=== PATIENT | male | born 1940 | race Hispanic/Latino ===

== ENCOUNTER 2024-12-26 18:23 | Inpatient (IN) | payer OTHER, MEDICARE ==
[~2024-12-26] VITALS: Ht 167.6 cm; Wt 59.9 kg
[2024-12-26 20:26] LABS: IMMATURE GRANULOCYTE ABSOLUTE 0.06 K/uL (0-1); NUCLEATED RED BLOOD CELLS 0.0 % (0.0-0.19); PLATELET COUNT (AUTO) 207 K/uL (130-400); RED BLOOD CELL COUNT(AUTO) 3.99 MIL/uL (4.50-6.20); RED CELL DISTRIBUTION WIDTH 12.6 % (11.0-15.5); WHITE BLOOD COUNT (AUTO) 13.2 K/uL (4.8-10.8)
[2024-12-26] MEDS: 0.9% NACL 500ML IV.SOLN 500 ML IV ONE ×2 (20:27→23:02)
[2024-12-26 20:43] LABS: CREATININE 1.0 mg/dL (0.5-1.3); GLOMERULAR FILTR. RATE CALC 73.0 mL/min (>90); GLUCOSE,RANDOM 220.0 mg/dL (70-105); SODIUM SERUM 138.0 mmol/L (136-145); UREA NITROGEN, BLOOD 16.0 mg/dL (7-18)
[2024-12-26 20:52] LABS: ASPARTATE AMINOTRANSFERASE 22.0 U/L (10-37); TOTAL PROTEIN, SERUM 6.6 g/dL (6.0-8.3)
--- NOTE | 2024-12-26 21:42 | HMCIMG ---
EXAM: CT Head Without IV contrast. CLINICAL HISTORY: Patient presents with pain. TECHNIQUE: Axial computed tomography images of the head/brain without intravenous contrast. COMPARISON: None provided. FINDINGS: BRAIN: Extensive gliosis with encephalomalacia in the bilateral frontal lobes and right cerebellar hemisphere. Diffuse cerebral atrophy in the form of prominent cortical sulci, basal cisterns, and bilateral sylvian fissures. Periventricular hypodensities are concerning for chronic microangiopathic ischemic changes. 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 The lesion is suboptimally evaluated due to the non-contrast nature of the study. MRI brain with contrast is recommended for further evaluation. The right cerebellopontine angle cistern appears prominent. No evidence of acute hemorrhage or acute territorial infarct. No midline shift or extra-axial collections. VENTRICLES: Mild prominence of the ventricular system without hydrocephalus. ORBITS: The orbits are unremarkable. SINUSES AND MASTOIDS: The paranasal sinuses and mastoid air cells are clear. BONES: Diffuse thinning of the calvarium in the frontal region with a focal bony defect along the inner table of the frontal bone and a bone flap in place. No acute fracture. SOFT TISSUES: Unremarkable. 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 Recommend MRI brain and IAC with contrast for further evaluation. Extensive gliosis with encephalomalacia in the bilateral frontal lobes and right cerebellar hemisphere. Diffuse cerebral atrophy with chronic microangiopathic ischemic changes. Postsurgical changes in the frontal calvarium with a bony defect and a bone flap in place. No acute intracranial hemorrhage. /[place]
[2024-12-26 21:53] LABS: SARS-CoV-2, RNA, NAAT NEGATIVE SARS CoV-2 (NEGATIVE)
[2024-12-26 21:57] LABS: INFLUENZA TYPE A Negative For Type A (NEGATIVE); INFLUENZA TYPE B Negative For Type B (NEGATIVE)
[2024-12-26] MEDS: 0.9% NACL 500ML IV.SOLN 500 ML IV SCH (22:12)
[2024-12-26 22:50] LABS: INR 1.12 (0.85-1.15)
[2024-12-26] MEDS ORDERED: IOHEXOL 350 MG/ML 100ML INFUS..BTL IV ONE (22:58)
[2024-12-26] MEDS: LACTATED RINGERS 1000ML 1,000 ML IV SCH (23:29)
[2024-12-26] MEDS ORDERED: HYDROcodone/APAP 5/325 1 TAB TABLET PO PRN ×2 (23:30)
[2024-12-26] MEDS ORDERED: PROMETHAZINE HCL 25 MG/ML 1ML AMPULE IM PRN (23:30)
[2024-12-26] MEDS ORDERED: LACTULOSE 20 GM/30 ML UDCUP PO PRN (23:30)
--- NOTE | 2024-12-26 23:49 | HMCIMG ---
EXAM: CR Chest, 1 view CLINICAL HISTORY: Elevated heart rate. COMPARISON: None provided. FINDINGS: Left lower zone airspace disease. The remaining lung leahy are clear. No pleural effusion or pneumothorax. The cardiomediastinal silhouette is within normal limits. Mild atherosclerotic aorta. No acute osseous abnormality. IMPRESSION: Left lower zone airspace disease could be pneumonia. The remaining lung leahy are clear. /[place]
--- NOTE | 2024-12-26 23:54 | ERN ---
ED Note History of Present Illness Stated Complaint: NAUSEA, VOMITING Chief Complaint: Nausea,Vomiting,Diarrhea Time Seen by MD: 18:27 Time Seen by Midlevel: 18:28 Dictation: 84-year-old male who presents to the emergency department due to reported having some nausea and vomiting that began 2 days ago. Currently, he denies having any headache, fever, chills, runny nose or sore throat associated with this. Patient states that he does have a history of a brain tumor and does not know whether or not this might be related with this. 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 There is no report of any chest pain, chest pressure or shortness of breath associated with this. However, he states that he is unsure whether or not this might be related to that. Upon initial evaluation, the patient presents with a normal neurological examination. Allergies: Coded Allergies: No Known Drug Intolerances (Unverified Allergy, Unknown, 12/26/24) Emergency Care OPTICAL ASSISTANT: None Past Medical History Past Medical History: Diabetes-Type II, Hypertension, Hypothyroid Surgical History: None PSYCH History: no pertinent psych hx RN Note Reviewed/Agreed w/PFSH: Yes Review of System Dictation Abdomen/GI: Nausea vomiting Initial Vital Sign VS Vital Signs Date Time Temp Pulse Resp B/P (MAP) Pulse Ox O2 Delivery O2 Flow Rate FiO2 12/26/24 18:24 98.1 104 18 110/46 97 Room Air 0 12/26/24 18:50 21 Physical Exam Dictation General: awake, alert, NAD Head/Face: Normocephalic, atraumatic Eyes: PERRL, EOMI ENT: Oral mucosa moist Neck: Trachea midline, supple Cardiovascular: RRR, no edema Respiratory: Symmetrical, non-labored Abdomen: Soft, non-tender, non-distended, no guarding. Skin: Warm, dry, good turgor, no rash MS/Extremity: Pulses equal, no cyanosis, neurovascular intact, FROM Neuro: COAx4, GCS 15, steady gait, Psych: Normal behavior, mood, and affect normal Results (Laboratory/Radiology) Laboratory/Radiology Laboratory Tests Test 12/26/24 18:43 12/26/24 18:47 12/26/24 21:33 12/26/24 22:28 Whole Blood Glucose 233 MG/DL (70-110) H White Blood Count 13.2 K/uL (4.8-10.8) H Red Blood Count 3.99 MIL/uL (4.50-6.20) L Hemoglobin 11.8 g/dL (14.0-18.0) L Hematocrit 33.6 % (42-54) L Mean Corpuscular Volume 84.2 fL (79-99) Mean Corpuscular Hemoglobin 29.6 pg (27.0-33.0) Mean Corpuscular Hemoglobin Concent 35.1 g/dL (32.0-36.0) Red Cell Distribution Width 12.6 % (11.0-15.5) Platelet Count 207 K/uL (130-400) Mean Platelet Volume 9.7 fL (7.5-10.5) Immature Granulocyte % (Auto) 0.5 % (0-1) Neutrophils (%) (Auto) 90.3 % (40.0-77.0) H Lymphocytes (%) (Auto) 4.3 % (21.0-51.0) L Monocytes (%) (Auto) 4.6 % (3.0-13.0) Eosinophils (%) (Auto) 0.0 % (0.0-8.0) Basophils (%) (Auto) 0.3 % (0.0-5.0) Neutrophils # (Auto) 11.9 K/uL (1.8-7.7) H Lymphocytes # (Auto) 0.6 K/uL (1.0-4.8) L Monocytes # (Auto) 0.6 K/uL (0.1-1.0) Eosinophils # (Auto) 0.00 K/uL (0.00-0.70) Basophils # (Auto) 0.04 K/uL (0.00-0.20) Absolute Immature Granulocyte (auto 0.06 K/uL (0-1) Nucleated Red Blood Cells 0.0 % (0.0-0.19) White Cell Morphology Comment See comments Sodium Level 138 mmol/L (136-145) Potassium Level 3.3 mmol/L (3.5-5.1) L Chloride Level 100 mmol/L (101-111) L Carbon Dioxide Level 28 mmol/L (21-32) Blood Urea Nitrogen 16 mg/dL (7-18) Creatinine 1.0 mg/dL (0.5-1.3) Glomerular Filtration Rate Calc 73 mL/min (>90) Random Glucose 220 mg/dL (70-105) H Total Calcium 8.8 mg/dL (8.5-10.1) Total Bilirubin 1.0 mg/dL (0.2-1.0) Aspartate Amino Transf (AST/SGOT) 22 U/L (10-37) Alanine Aminotransferase (ALT/SGPT) 19 U/L (12-78) Alkaline Phosphatase 117 U/L (50-136) Total Protein 6.6 g/dL (6.0-8.3) Albumin 3.2 g/dL (3.5-5.0) L Influenza Type A Antigen Negative For Type A Influenza Type B Antigen Negative For Type B SARS-CoV-2, RNA, NAAT NEGATIVE SARS CoV-2 Prothrombin Time 11.7 SEC (9.6-11.6) H Prothromb Time International Ratio 1.12 (0.85-1.15) Activated Partial Thromboplast Time 26.8 SEC (26.3-35.5) D-Dimer Quantitative (PE/DVT) 1595 ng/mL (0-500) *H Troponin I High Sensitivity 120 ng/L (4-75) *H Labs Reviewed?: Yes EKG Comment: EKG done 12/26/2025 at 10:51 p.m.. Ventricular rate 105 beats per minute KS 189 MS QRS 97 MS QT to 335 MS [address] Scan Comment: CT of the head without contrast concerning for a brain tumor with mass effect as per radiologist interpretation. ED Course ED Course Orders Procedure Category Date Status Time Cbc With Differential LAB 12/26/24 Complete 18:56 Comprehensive LAB 12/26/24 Complete Metabolic Panel 18:56 Ct Head/Brain W/O CT 12/26/24 Resulted Contrast 20:24 0.9% Nacl 500ml PHA 12/26/24 Complete Iv.Soln (Ns 500ml 20:30 12 Lead Ekg Tracing- EKG 12/26/24 Logged Technical 21:28 Covid Rna Naat LAB 12/26/24 Complete 21:31 Influenza Type A & B, LAB 12/26/24 Complete Rapid 21:31 0.9% Nacl 500ml PHA 12/26/24 In Process Iv.Soln (Ns 500ml 22:00 Chest 1vw RAD 12/26/24 Taken 22:16 Troponin I High LAB 12/26/24 Complete Sensitivity 22:16 Pt And Ptt LAB 12/26/24 Complete 22:16 Prothrombin Time With LAB 12/26/24 Complete INR 22:16 D-Dimer LAB 12/26/24 Complete 22:16 Urinalysis Profile LAB 12/26/24 Logged 22:16 Ct Chest Pe Protocol CT 12/26/24 Taken Wwo Cont 22:36 0.9% Nacl 500ml PHA 12/26/24 Complete Iv.Soln (Ns 500ml 23:00 12 Lead Ekg Tracing- EKG 12/26/24 Logged Technical 22:51 Iohexol (Omnipaque) PHA 12/26/24 Complete 22:58 Dexamethasone 4mg/Ml PHA 12/26/24 Complete 1ml Vial (Dexametha 23:30 Neurosurgery Consult CONPHYSVC 12/27/24 Transmitted 08:00 Dexamethasone 4mg/Ml PHA 12/27/24 In Process 1ml Vial (Dexametha 11:30 Vital Signs Every 4 CPOE 12/26/24 Transmitted Hours 23:16 I&O Q Shift CPOE 12/26/24 Transmitted 23:16 Activity: Bed Rest CPOE 12/26/24 Transmitted 23:16 Npo Except For Meds CPOE 12/26/24 Transmitted 23:16 O2 Order RT 12/26/24 Transmitted 23:16 Cbc Without LAB 12/27/24 Verified Differential 04:00 Basic Metabolic Panel LAB 12/27/24 Verified 04:00 Magnesium LAB 12/27/24 Verified 04:00 Phosphorus LAB 12/27/24 Verified 04:00 Thyroid Stimulating LAB 12/27/24 Verified Hormone 04:00 Echo 2-D Complete ECHO 12/26/24 Logged 23:16 Lactated Ringers PHA 12/26/24 In Process 1000ml (Lactated 23:30 Acetaminophen 325 Tab PHA 12/26/24 In Process (Tylenol 325mg Tab 23:30 Acetaminophen 650mg PHA 12/26/24 In Process Supp (Tylenol 650mg 23:30 Hydrocodone/Apap PHA 12/26/24 In Process 5/325 ([place] 5/325mg) 23:30 Lactulose 20 Gm/30 Ml PHA 12/26/24 In Process Udcup (Constulose 23:30 Docusate Sodium 100 PHA 12/26/24 In Process Mg Cap (Colace 100mg 23:30 Temazepam 15 Mg Cap PHA 12/26/24 In Process (Restoril 15 Mg Cap) 23:30 Ondansetron 4mg Inj PHA 12/26/24 In Process (Zofran 4mg Inj) 23:30 Labetalol 20mg Syg PHA 12/26/24 In Process (Trandate 20mg Syg) 23:30 Apply Scds CPOE 12/26/24 Transmitted 23:16 Elevate Hob At 30 CPOE 12/26/24 Transmitted Degrees 23:16 Telemetry Monitoring CPOE 12/26/24 Transmitted 23:16 Initiate PHILLIP 12/26/24 In Process Hyperglycemia Protoco 23:16 Insulin Regular, PHA 12/27/24 In Process Human 3ml (Humulin R 07:30 Promethazine Hcl PHA 12/26/24 In Process (Phenergan) 23:30 Hydrocodone/Apap PHA 12/26/24 In Process 5/325 ([place] 5/325mg) 23:30 *Nursing CPOE 12/26/24 Transmitted Communication: 23:24 *Nursing CPOE 12/26/24 Transmitted Communication: 23:24 Hemoglobin A1c LAB 12/27/24 Verified 04:00 Troponin I High LAB 12/27/24 Verified Sensitivity 04:00 Rapid (Group A Strep) LAB 12/26/24 Logged 23:24 Aspirin 81mg Chew Tab PHA 12/26/24 Complete (Aspirin 81mg Chew 23:30 Atorvastatin 40mg PHA 12/27/24 In Process (Lipitor 40mg) 21:00 12 Lead Ekg Tracing- EKG 12/27/24 Logged Technical 04:00 Heparin 5,000 Unit PHA 12/26/24 In Process Vial (Heparin 5,000 U 23:30 Admit Orders ADM 12/26/24 Transmitted 23:34 Current Medications Medications (Trade) Dose Ordered Sig/Joao Route PRN Reason Start Time Stop Time Status Last Admin Dose Admin Acetaminophen (TYLenol 325MG TAB) 650 mg Q6H PRN PO FEVER/MILD PAIN LEVEL 1-3 12/26/24 23:30 01/25/25 23:29 Acetaminophen (TYLenol 650MG SUPPOSITORY) 650 mg Q6H PRN RC FEVER / MILD PAIN 1-3 IF NPO 12/26/24 23:30 01/25/25 23:29 Acetaminophen/ Hydrocodone Bitart (NORco 5/325MG) 1 tab Q6H PRN PO MODERATE PAIN (4-6) 12/26/24 23:30 12/31/24 23:29 Acetaminophen/ Hydrocodone Bitart (NORco 5/325MG) 2 tab Q6H PRN PO SEVERE PAIN (7-10) 12/26/24 23:30 12/31/24 23:29 Aspirin (Aspirin 81mg Chew Tab) 81 mg ONCE ONCE PO 12/26/24 23:30 12/26/24 23:37 DC Atorvastatin Calcium (LIPItor 40MG) 40 mg HS PO 12/27/24 21:00 01/26/25 20:59 Dexamethasone Sodium Phosphate (dexaMETHasone 4MG/ML 1ML VIAL) 4 mg Q12H IVP 12/27/24 11:30 01/26/25 11:29 Dexamethasone Sodium Phosphate (dexaMETHasone 4MG/ML 1ML VIAL) 6 mg ONCE ONCE IVP 12/26/24 23:30 12/26/24 23:31 DC 12/26/24 23:24 Docusate Sodium (COLace 100MG CAP) 100 mg BID PRN PO c 12/26/24 23:30 01/25/25 23:29 Heparin Sodium (Porcine) (HEParin 5,000 UNIT VIAL) 5,000 unit Q12H SQ 12/26/24 23:30 01/25/25 23:29 Insulin Human Regular (humuLIN R 100 UNIT/ML 3ML) INSULIN SLIDING SCAL... ACHS SQ 12/27/24 07:30 01/26/25 07:29 Iohexol (Omnipaque) 35,000 mg STK-MED ONCE IV 12/26/24 22:58 12/26/24 22:59 DC Labetalol HCl (TRANdate 20MG SYG) 10 mg Q2H PRN IV SBP GREATER THAN 160 12/26/24 23:30 01/25/25 23:29 Lactated Ringer's 1,000 ml @ 75 mls/hr [id number] IV 12/26/24 23:30 01/25/25 23:29 12/26/24 23:29 Lactulose (Constulose 20gm/ 30ml Udcup) 20 gm Q6H PRN PO CONSTIPATION 12/26/24 23:30 01/25/25 23:29 Ondansetron HCl (zoFRAN 4MG INJ) 4 mg Q6H PRN IVP NAUSEA/VOMITING 12/26/24 23:30 01/25/25 23:29 Promethazine HCl (Phenergan) 12.5 mg Q6H6 PRN IM NAUSEA 12/26/24 23:30 01/25/25 23:29 Sodium Chloride 500 ml @ 0 mls/hr ONCE ONCE IV 12/26/24 20:30 12/26/24 20:31 DC 12/26/24 20:27 Sodium Chloride 500 ml @ 0 mls/hr Q0M IV 12/26/24 22:00 01/25/25 21:59 12/26/24 22:12 Sodium Chloride 500 ml @ 0 mls/hr Q0M ONCE IV 12/26/24 23:00 12/26/24 23:01 DC 12/26/24 23:02 Temazepam (restORIL 15 MG CAP) 15 mg HS PRN PO INSOMNIA/SLEEP 12/26/24 23:30 01/25/25 23:29 Vital Signs Date Time Temp Pulse Resp B/P (MAP) Pulse Ox O2 Delivery O2 Flow Rate FiO2 12/26/24 22:49 107 20 144/69 97 Room Air* 0 12/26/24 20:40 99.7 141 20 110/64 97 Room Air* 0 12/26/24 19:22 93 20 130/55 96 Room Air* 0 12/26/24 18:50 98.6 93 20 122/51 95 Room Air* 0 12/26/24 18:24 98.1 104 18 110/46 97 Room Air 0 Medical Decision Making MDM MDM: Differential diagnosis: STEMI, non STEMI, electrolyte imbalance. Rationale: Tests considered and ordered secondary to shared decision making include: Previous outside records reviewed: Old ER visits. Risk of complication and/or morbidity or mortality of patient management: None Medications-Per medication reconciliation Need for hospitalization: Patient does not meet criteria for hospitalization. Need for emergency major/minor surgery: No There are no social concerns with this patient. Prescription drug management Prescriptions will include symptomatic care Patient's prior external medical records from other ER visits were reviewed by me as indicated. Prior testing and results from previous visits were reviewed. Prior tests were taken into account with medical decision making and resource utilization, independent historian/historians were used to obtain complete medical history. I independently interpreted the test that were performed, results were reviewed by me and considered findings on radiology if ordered. Medical management and examination interpretation discussions were had by me with other qualified healthcare professionals as indicated for the patient's care. 12/26/2024 [place] [id number]. Discussed and reviewed the diagnostic findings with Dr. Alvarez who states that he has the patient aware in the past that this is mother like an operable tumor due to the fact that there is a good chance of not being able to survive the surgery for which it has been confirmed with the patient and states that he is pending to talk to the family and his primary care doctor about this. DX & DISP Disposition: Inpatient Decision to Admit Date: Dec 26, 2024 Decision to Admit Time: 23:53 Departure Impression: Primary Impression: Non-STEMI (non-ST elevated myocardial infarction) Additional Impression: History of brain tumor Condition: Stable Referrals: WARREN ISIDRO MD (PCP) Time of Disposition: 23:53 GURPREET LOWRY Dec 26, 2024 23:54
[2024-12-27] VITALS (9 sets, daily range): BP systolic 135–158; BP diastolic 68–70; PULSE 61–89; RESP 18; TEMP 97.6–98.9; O2SAT 96–97
--- NOTE | 2024-12-27 | HP ---
[facility] HISTORY & PHYSICAL Date Patient Seen: Dec 27, 2024 Time of Visit: 00:00 Supervising Physician: Dr. Keith Barker Primary Care Physician: Dr. Penelope De Los Santos Outpatient Specialists: Patient saw Unknown neurosurgeon two years ago Inpatient Consults: Dr. 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 Extensive gliosis with encephalomalacia in the bilateral frontal lobes and right cerebellar hemisphere, per CT on 12/26/2024. Diffuse cerebral atrophy with chronic microangiopathic ischemic changes, per CT on 12/26/2024 Postsurgical changes in the frontal calvarium with a bony defect and a bone flap in place, per CT on 12/26/2024 Sepsis with pneumonia and UTI as a sources Left lower lobe pneumonia, POA Acute complicated cystitis, POA Elevated troponin Dehydration 2/2 acute nausea and vomiting Elevated D-dimer, POA, PE was ruled out Pulmonary nodules,POA Hepatic cyst Cholelithiasis 0.8 cm fat density lesion in the left renal upper pole cortex, likely an angiomyolipoma Acute kidney injury, GFR 73 (no other GFR to compare) Leukocytosis Anemia chronic disease Electrolyte derangement (Hypokalemia, hypochloremia) Diabetes mellitus with hyperglycemia Hypoalbuminemia Chronic problem list: DM type 2, HTN, hypothyroidism HPI: Mr. Hollins is a 84-year-old male with a history of brain tumor who presented to [facility] for evaluation of nausea and vomiting that began 2 days ago. The son at bedside stated that they were told by unknown neurosurgeon two years ago that he does have a brain tumor that is almost completely inoperable. The patient deniedhe patient denied a headache, fever, chills, runny nose, sore throat, chest pain, chest pressure, or shortness of breath, any other problem or concern . The son at bedside reported that the patient will be fine and all of a sudden develops intermittent nausea. He reported that the neurosurgeon explained symptoms that might be experienced with the his tumor and the the patient is experiencing. However, he states that he is unsure whether or not this might be related to that. ED provider reports that upon initial evaluation, the patient presents with a normal neurological examination. The patient arrived to the ED with a blood pressure 110/46 heart rate 104-141 bpm, T-max 99.7, RR 18-[address] head without contrast: Isodense lesion in the right cerebellopontine angle cistern causing mass effect on the thong and right cerebellar hemisphere with effacement of the fourth ventricle. Recommend MRI brain and IAC with contrast for further evaluation. Extensive gliosis with encephalomalacia in the bilateral frontal lobes and right cerebellar hemisphere. Diffuse cerebral atrophy with chronic microangiopathic ischemic changes. Postsurgical changes in the frontal calvarium with a bony defect and a bone flap in place. No acute intracranial hemorrhage. CT chest PE protocol with and without contrast: Left lower lobe pneumonia. Pulmonary nodules. Follow-up posttreatment is recommended. Hepatic cyst. Cholelithiasis. 0.8 cm fat density lesion in the left renal upper pole cortex, likely an angiomyolipoma. Chest x-ray: Left lower zone airspace disease could be pneumonia. The remaining lung leahy are clear. ED provider reports that he spoke to neurosurgeon Dr. Alvarez who recommended to administer steroids, we will see patient tomorrow, and reported the complexity of a surgery with a poor outcome during surgery. ED administered NS a 1500 mL and Decadron 6 mg IV. I assessed the patient at bedside in ED 11. The patient was sleeping, breathing was even, unlabored, in no distress. Patient was slow to understand, follows commands, is oriented to person, place (not oriented to time and not really oriented to situation). I informed the son of labs, diagnostics, and plan of care. I answered the sons multiple questions. He verbalized understanding and is in agreement with the plan. Plan and assessment are listed below. PAST MEDICAL HX: see above PAST SURGICAL HX: noncontributory SOCIAL HISTORY: No tobacco, ETOH, or illicit drug use Coded Allergies: No Known Drug Intolerances (Unverified Allergy, Unknown, 12/26/24) REVIEW OF SYSTEMS: 12-ROS reviewed with the patient. All pertinent positives mentioned above. Otherwise negative, noncontributory, nonpertinent. PHYSICAL EXAM: GENERAL: Alert, weak, awake oriented x 2-3 HEENT: EOMI, Sclera non icteric, moist mucosa NECK: Supple, no JVD, trachea midline LUNGS: Clear breath sounds bilaterally. No wheezes HEART: Regular rate and rhythm. Normal S1 and S2, without murmurs ABD: Abdomen soft, nontender. Bowel sounds present EXT: No clubbing cyanosis or edema NEURO: Alert and oriented to person, place, and some situation, follows commands Vital Signs (last 8hr) Date Time Temp Pulse Resp B/P (MAP) Pulse Ox O2 Delivery O2 Flow Rate FiO2 12/26/24 23:47 113 20 154/81 97 Room Air* 0 21 12/26/24 22:49 107 20 144/69 97 Room Air* 0 21 12/26/24 20:40 99.7 141 20 110/64 97 Room Air* 0 21 12/26/24 19:22 93 20 130/55 96 Room Air* 0 21 12/26/24 18:50 98.6 93 20 122/51 95 Room Air* 0 21 12/26/24 18:24 98.1 104 18 110/46 97 Room Air 0 LABS: Hematology Labs: Test 12/26/24 18:47 Range/Units White Blood Count 13.2 H 4.8-10.8 K/uL Red Blood Count 3.99 L 4.50-6.20 MIL/uL Hemoglobin 11.8 L 14.0-18.0 g/dL Hematocrit 33.6 L 42-54 % Mean Corpuscular Volume 84.2 79-99 fL Mean Corpuscular Hemoglobin 29.6 27.0-33.0 pg Mean Corpuscular Hemoglobin Concent 35.1 32.0-36.0 g/dL Red Cell Distribution Width 12.6 11.0-15.5 % Platelet Count 207 130-400 K/uL Mean Platelet Volume 9.7 7.5-10.5 fL Immature Granulocyte % (Auto) 0.5 0-1 % Neutrophils (%) (Auto) 90.3 H 40.0-77.0 % Lymphocytes (%) (Auto) 4.3 L 21.0-51.0 % Monocytes (%) (Auto) 4.6 3.0-13.0 % Eosinophils (%) (Auto) 0.0 0.0-8.0 % Basophils (%) (Auto) 0.3 0.0-5.0 % Neutrophils # (Auto) 11.9 H 1.8-7.7 K/uL Lymphocytes # (Auto) 0.6 L 1.0-4.8 K/uL Monocytes # (Auto) 0.6 0.1-1.0 K/uL Eosinophils # (Auto) 0.00 0.00-0.70 K/uL Basophils # (Auto) 0.04 0.00-0.20 K/uL Absolute Immature Granulocyte (auto 0.06 0-1 K/uL Nucleated Red Blood Cells 0.0 0.0-0.19 % White Cell Morphology Comment See comments Chemistry Labs: Test 12/26/24 22:28 12/26/24 18:47 12/26/24 18:43 Range/Units Troponin I High Sensitivity 120 *H 4-75 ng/L Sodium Level 138 136-145 mmol/L Potassium Level 3.3 L 3.5-5.1 mmol/L Chloride Level 100 L 101-111 mmol/L Carbon Dioxide Level 28 21-32 mmol/L Blood Urea Nitrogen 16 7-18 mg/dL Creatinine 1.0 0.5-1.3 mg/dL Glomerular Filtration Rate Calc 73 >90 mL/min Random Glucose 220 H 70-105 mg/dL Total Calcium 8.8 8.5-10.1 mg/dL Total Bilirubin 1.0 0.2-1.0 mg/dL Aspartate Amino Transf (AST/SGOT) 22 10-37 U/L Alanine Aminotransferase (ALT/SGPT) 19 12-78 U/L Alkaline Phosphatase 117 50-136 U/L Total Protein 6.6 6.0-8.3 g/dL Albumin 3.2 L 3.5-5.0 g/dL Whole Blood Glucose 233 H 70-110 MG/DL Coagulation Labs: Test 12/26/24 22:28 Range/Units Prothrombin Time 11.7 H 9.6-11.6 SEC Prothromb Time International Ratio 1.12 0.85-1.15 Activated Partial Thromboplast Time 26.8 26.3-35.5 SEC D-Dimer Quantitative (PE/DVT) 1595 *H 0-500 ng/mL DIAGNOSTICS / RADIOLOGY RESULTS: [ ] PLAN -Admit to medical floor with continuous telemetry monitoring. -Neurosurgery was consulted by ED who will see patient as consult. -Neurological checks every 4 hours and as needed. -Dexamethasone as recommended by neurosurgeon. -Aspirin 81 mg x 1 dose administered. -Atorvastatin 40 mg p.o. daily. -Blood pressure checks every 4 hours and as needed. -Systolic blood pressure between 120 to 160 to maintain adequate brain perfusion. -MRI of brain and IAC with contrast as recommended by CT/ radiologist. -Echo complete. -Troponins and EKG series. -Antibiotic therapy: Rocephin and doxycycline. -LR at 75 mL an hour. (ED administered a NS 1500 mL.) -Reconcile home medications once available. -Glucometer checks before meals and at bedtime with regular insulin sliding scale as needed -PT/OT evaluation. -PRN medications for pain, N/V, constipation, fever, hypertension -AM labs: CBC, CMP, mag, phos, TSH, A1C, Vitamin B12, fibrinogen, folate level, lipid panel. -Monitor renal and liver function -Monitor electrolytes and treat accordingly PRN -GI and DVT prophylaxis. -Further plan/orders per hospitalization course. NEURO: Minimize central acting medications as possible. Maintain fall precautions, adequate lighting during the day PULMONARY: Supplemental 02 as needed. Maintain aspiration precautions at all times CARDIOVASCULAR: Follow hemodynamics. Vital signs per facility protocol GI & NUTRITION: Continue with nutritional support. Continue stool softeners and laxatives as needed. KIDNEYS & ELECTROLYTES: Strict monitoring of intake, output and overall fluid balance. Avoid nephrotoxic medications to the extent possible. Medications to be dosed according to renal function. Monitor electrolytes and replace as needed ENDOCRINE: Maintain blood glucose between 100-180 at all times. Hypoglycemia protocol in place INFECTIOUS DISEASE: Trend temperature, WBC and procalcitonin level Follow cultures, deescalate antibiotics as soon as possible. Panculture if new onset fever ONCOLOGY/HEMATOLOGY/COAGULATION: Monitor for s/s of bleeding Monitor hemoglobin, coagulation studies as needed SKIN: Pressure ulcer prevention per facility protocol Specialty mattress ORTHO/REHAB: Continue PT/OT Prophylaxis: Continue GI and DVT prophylaxis Code Status: Full Resuscitation Disposition: TBD ATTESTATION BY PHYSICIAN I reviewed the documentation, medical decision making, and treatment plan as noted by the CATIE above. I agree with the findings and plan of care. Keith Barker MD, [employer] Dec 27, 2024 00:00
[2024-12-27] MEDS: ASPIRIN 81MG CHEW TAB PO ONE (00:03)
--- NOTE | 2024-12-27 00:22 | HMCIMG ---
EXAM: CTA examination of the chest. CLINICAL HISTORY: History of cancer. TECHNIQUE: Thin collimated axial CTA images of the chest were obtained, and sagittal and coronal reformatted images were also submitted. A CT scan is done according to ALARA (As Low as Reasonably Achievable). CONTRAST: Omnipaque 350. COMPARISON: None provided. FINDINGS: There is a large consolidation in the left lower lobe, predominantly in the posterior segment. 0.5 cm right lower lobe pulmonary nodule (series 4, image 39). 0.4 cm left upper lobe pulmonary nodule (series 4, image 31). No pleural effusions. No pericardial effusion. The heart size is within normal limits. No thoracic aortic aneurysm or dissection. No filling defect or pulmonary thromboembolism. No axillary, supraclavicular, or mediastinal lymphadenopathy. Limited views of the upper abdomen demonstrate a 4.3 cm nonenhancing hypodense lesion in the right lobe of the liver, likely a cyst. Cholelithiasis. 0.8 cm fat density lesion in the left renal upper pole cortex, likely an angiomyolipoma. No acute or suspicious osseous abnormality. Thoracic spondylosis. Osteopenia. IMPRESSION: Left lower lobe pneumonia. Pulmonary nodules. Follow-up posttreatment is recommended. Hepatic cyst. Cholelithiasis. 0.8 cm fat density lesion in the left renal upper pole cortex, likely an angiomyolipoma. /[place]
[2024-12-27 01:05] LABS: APPEARANCE,URINE CLEAR (CLEAR); GLUCOSE, URINE (UA) TRACE mg/dL (NEGATIVE); LEUKOCYTE ESTERASE ,URINE 75 Leu/uL (NEGATIVE); NITRATE,URINE NEGATIVE (NEGATIVE); OCCULT BLOOD,URINE SMALL (NEGATIVE)
[2024-12-27 01:08] LABS: ADD UA MICROSCOPIC YES
--- NOTE | 2024-12-27 03:47 | EKG ---
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
[2024-12-27 04:05] LABS: NUCLEATED RED BLOOD CELLS 0.0 % (0.0-0.19); PLATELET COUNT (AUTO) 153.0 K/uL (130-400); RED BLOOD CELL COUNT(AUTO) 3.62 MIL/uL (4.50-6.20); RED CELL DISTRIBUTION WIDTH 12.7 % (11.0-15.5); WHITE BLOOD COUNT (AUTO) 14.2 K/uL (4.8-10.8)
[2024-12-27 04:37] LABS: CREATININE 0.9 mg/dL (0.5-1.3); GLOMERULAR FILTR. RATE CALC 83.0 mL/min (>90); GLUCOSE,RANDOM 220.0 mg/dL (70-105); PHOSPHORUS 2.6 mg/dL (2.5-4.9); SODIUM SERUM 142.0 mmol/L (136-145); UREA NITROGEN, BLOOD 13.0 mg/dL (7-18)
[2024-12-27] MEDS: MAGNESIUM 2GM PREMIX 50ML 50 ML IV PRN (06:17)
--- NOTE | 2024-12-27 06:46 | EKG ---
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
--- NOTE | 2024-12-27 06:47 | EKG ---
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
--- NOTE | 2024-12-27 07:02 | NUR ---
Family to bring home medications.
[2024-12-27] MEDS: DOXYCYCLINE 100MG+NS 250ML 250 ML IV SCH (10:31)
--- NOTE | 2024-12-27 11:25 | PN ---
[facility] PROGRESS NOTE Date Patient Seen: Dec 27, 2024 Time of Visit: 11:21 Supervising Physician: Dr Heller Primary Care Physician: Dr. Penelope De Los Santos Outpatient Specialists: Patient saw Unknown neurosurgeon two years ago Inpatient Consults: Dr. 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 Extensive gliosis with encephalomalacia in the bilateral frontal lobes and right cerebellar hemisphere, per CT on 12/26/2024. Diffuse cerebral atrophy with chronic microangiopathic ischemic changes, per CT on 12/26/2024 Postsurgical changes in the frontal calvarium with a bony defect and a bone flap in place, per CT on 12/26/2024 Sepsis with pneumonia and UTI as a sources Left lower lobe pneumonia, POA Acute complicated cystitis, POA Elevated troponin Dehydration 2/2 acute nausea and vomiting Elevated D-dimer, POA, PE was ruled out Pulmonary nodules,POA Hepatic cyst Cholelithiasis 0.8 cm fat density lesion in the left renal upper pole cortex, likely an angiomyolipoma Acute kidney injury, GFR 73 (no other GFR to compare) Leukocytosis Anemia chronic disease Electrolyte derangement (Hypokalemia, hypochloremia) Diabetes mellitus with hyperglycemia Hypoalbuminemia Chronic problem list: DM type 2, HTN, hypothyroidism INTERVAL HISTORY: Patient has been seen and examined, patient resting comfortably in bed, patient reporting improvement in his nausea. Denies any headache He is alert and oriented x4 No neurological deficits Tolerating breakfast, talking with his son at bedside. Patient's D-dimer is 1600, pending a CTA, patient is on steroids per Dr. Alvarez, dexamethasone 4 mg q.12 hours He is on antibiotics ceftriaxone and azithromycin for concern for possible pneumonia. Heparin subQ 12 hours Good O2 saturations Plan: Follow neurosurgical recs, steroids Neurovascular checks per protocol Antibiotics, follow cultures, RT, neb treatments Telemetry Follow CTA REVIEW OF SYSTEMS: 12-ROS reviewed with the patient. All pertinent positives mentioned above. Otherwise negative, noncontributory, nonpertinent. PHYSICAL EXAM: GENERAL: Alert, weak, awake oriented x 2-3 HEENT: EOMI, Sclera non icteric, moist mucosa NECK: Supple, no JVD, trachea midline LUNGS: Clear breath sounds bilaterally. No wheezes HEART: Regular rate and rhythm. Normal S1 and S2, without murmurs ABD: Abdomen soft, nontender. Bowel sounds present EXT: No clubbing cyanosis or edema NEURO: Alert and oriented to person, place, and some situation, follows commands Vital Signs (last 8hr) Date Time Temp Pulse Resp B/P (MAP) Pulse Ox O2 Delivery O2 Flow Rate FiO2 12/27/24 11:16 97.9 74 18 145/69 96 Room Air 12/27/24 08:05 99.0 77 18 141/68 97 Room Air 12/27/24 04:27 97 Room Air* 0 21 LABS: Hematology Labs: Test 12/27/24 03:57 12/26/24 18:47 Range/Units White Blood Count 14.2 H 4.8-10.8 K/uL Red Blood Count 3.62 L 4.50-6.20 MIL/uL Hemoglobin 10.6 L 14.0-18.0 g/dL Hematocrit 30.8 L 42-54 % Mean Corpuscular Volume 85.1 79-99 fL Mean Corpuscular Hemoglobin 29.3 27.0-33.0 pg Mean Corpuscular Hemoglobin Concent 34.4 32.0-36.0 g/dL Red Cell Distribution Width 12.7 11.0-15.5 % Platelet Count 153 # 130-400 K/uL Mean Platelet Volume 9.3 7.5-10.5 fL Nucleated Red Blood Cells 0.0 0.0-0.19 % Immature Granulocyte % (Auto) 0.5 0-1 % Neutrophils (%) (Auto) 90.3 H 40.0-77.0 % Lymphocytes (%) (Auto) 4.3 L 21.0-51.0 % Monocytes (%) (Auto) 4.6 3.0-13.0 % Eosinophils (%) (Auto) 0.0 0.0-8.0 % Basophils (%) (Auto) 0.3 0.0-5.0 % Neutrophils # (Auto) 11.9 H 1.8-7.7 K/uL Lymphocytes # (Auto) 0.6 L 1.0-4.8 K/uL Monocytes # (Auto) 0.6 0.1-1.0 K/uL Eosinophils # (Auto) 0.00 0.00-0.70 K/uL Basophils # (Auto) 0.04 0.00-0.20 K/uL Absolute Immature Granulocyte (auto 0.06 0-1 K/uL White Cell Morphology Comment See comments Chemistry Labs: Test 12/27/24 11:05 12/27/24 03:57 12/26/24 18:47 Range/Units Whole Blood Glucose 187 H 70-110 MG/DL Sodium Level 142 136-145 mmol/L Potassium Level 3.7 3.5-5.1 mmol/L Chloride Level 106 101-111 mmol/L Carbon Dioxide Level 29 21-32 mmol/L Blood Urea Nitrogen 13 7-18 mg/dL Creatinine 0.9 0.5-1.3 mg/dL Glomerular Filtration Rate Calc 83 >90 mL/min Random Glucose 220 H 70-105 mg/dL Total Calcium 9.1 8.5-10.1 mg/dL Phosphorus Level 2.6 2.5-4.9 mg/dL Magnesium Level 1.40 L 1.80-2.40 mg/dL Troponin I High Sensitivity 111 *H 4-75 ng/L Thyroid Stimulating Hormone (TSH) 0.59 0.36-3.74 uIU/mL Hemoglobin A1c 7.2 H 4.0-6.0 % Estimated Average Glucose (eAG) 160 H 70-126 mg/dL Total Bilirubin 1.0 0.2-1.0 mg/dL Aspartate Amino Transf (AST/SGOT) 22 10-37 U/L Alanine Aminotransferase (ALT/SGPT) 19 12-78 U/L Alkaline Phosphatase 117 50-136 U/L Total Protein 6.6 6.0-8.3 g/dL Albumin 3.2 L 3.5-5.0 g/dL Coagulation Labs: Test 12/26/24 22:28 Range/Units Prothrombin Time 11.7 H 9.6-11.6 SEC Prothromb Time International Ratio 1.12 0.85-1.15 Activated Partial Thromboplast Time 26.8 26.3-35.5 SEC D-Dimer Quantitative (PE/DVT) 1595 *H 0-500 ng/mL DIAGNOSTICS / RADIOLOGY RESULTS: [ ] PLAN NEURO: Minimize central acting medications as possible. Fall Precautions. Well lighted room through the day and minimize interruptions through the night to prevent acute delirium. PULMONARY: Supplemental 02 Titrate Fio2 to keep Spo2 > or = 90% DuoNebs and CPT as needed IS hourly while awake for pulmonary hygiene Out of bed to chair as tolerated VAP Bundle Vent/BIPAP Settings: [ ] Driving pressure: [ ] P Plat: [ ] Static C: [ ] Static R: [ ] P/F Ratio: [ ] CARDIOVASCULAR: Follow hemodynamics. Titrate vasopressor to keep MAP >65 or systolic blood pressure >95mmHg DIPS: [ ] LINES: [ ] GI & NUTRITION: Continue nutritional support Aspirations precautions Prokinetic agents and laxatives as needed KIDNEYS & ELECTROLYTES: Strict monitoring of intake and output Daily weights Avoid nephrotoxic agents Monitor electrolytes and replace as needed Goal urine output of 30mL/hr or 0.5mL/kg/hr Urine output: [ ] Fluid Balance: [ ] ENDOCRINE: Maintain blood glucose between 100-180 at all times. Insulin sliding scale for blood glucose management INFECTIOUS DISEASE: Trend temperature. Luong-culture if febrile. Micro: [ ] Antibiotics: [ ] HEMATOLOGY & COAGULATION: Monitor H&H. Keep Hgb > 7 Transfuse 1 unit of PRBC for Hgb < 7 Transfuse 1 pack of platelets of platelets < 20, 000 Watch for any signs and symptoms of bleeding SKIN: Pressure ulcer prevention per facility protocol Rehab: PT/OT Prophylaxis: GI: [ ] DVT: [ ] Code Status: Full Resuscitation Disposition: [ ] Other: Total patient critical care time 40 minutes excluding all procedures. Case was discussed and seen with my supervising physician. The above plan was formulated and agreed upon. CODEY RUIZ Dec 27, 2024 11:25
[2024-12-27] MEDS ORDERED: AZITHROMYCIN 500MG+NS 250ML 250 ML IVPB SCH (11:30)
--- NOTE | 2024-12-27 11:55 | NUR ---
DISCUSSED PATIENT BY PHONE WITH DR. BURR- HE STATES HE HAD ADVISED THE ER DOC HE WOULD BE IN TO SEE PATIENT TODAY. ROOM NUMBER RELAYED TO DR. BURR
--- NOTE | 2024-12-27 13:28 | NUR ---
DCP: HOME Sw met with pt and grandson(GDS) Filemon Hollins [phone]. GDS states pt stays 2 months at a time with each of his 3 children. Pt currently staying with Jackie Hollins [phone] at her home. Pt requires assistance with his ADLS ambulation transportation laundry and meal prep. Family assists as needed. Pt gets food stamps. Pt has walker, cane, shower chair, w/c, no provider, HH or HD services. PCP is Penelope De Los Santos and uses [facility] for rx needs. Family denies need for SNF, pt will return to Jackie's home at [place]. Addendum: 12/27/24 at 1338 by FREDRICK ZAMORA Amended: Links added.
[2024-12-27] MEDS ORDERED: PoTASSium chl 10% ELIXIR 20MEQ 20 MEQ/15 ML UDCUP PO PRN (19:30)
--- NOTE | 2024-12-27 23:45 | HMCSR ---
APPROVED REPORT EXAM: Two-dimensional and M-mode echocardiogram with Doppler and color Doppler. INDICATION ICD: Elevated troponin 2D Dimensions RVDd3.1 cmLVEF(%)48.6 (>50%)LVED Vol(simp.)59.0 mL IVSd0.7 (0.7-1.1cm)FS(%)24 %LVES Vol(simp.)21.0 mL LVDd4.3 (3.8-5.6cm)LA (2D)3.9 (1.6-4.0cm)LVEF(%, simp.)64 % PWd0.9 (0.7-1.1cm)Ao Root(2D)3.0 (2.0-3.7cm)LA ESV INDEX (BP)21.30 mL/m2 IVSs0.8 cmLVOT diam2.1 (1.8-2.4cm) LVDs3.2 (2.5-4.0cm)IVC diam1.4 cm PWs0.9 cm M-Mode Dimensions EPSS0.3 cm LA (MM)4.0 (1.6-4.0cm) Ao Root(MM)2.7 (2.0-3.7cm) Aortic Valve AoV Vmax1.4 m/My Peak GR7.4 mmHgLVOT Vmax0.9 m/s AoV VTI0.3 mAo Mean GR4.4 mmHgLVOT VTI0.19 m JOHNATHON (VMAX)2.14 cm2AVA (VTI) 2.4 cm2 Mitral Valve MV E Vmax85.6 cm/sDECEL Zqft482 ms MV A Vmax67.8 cm/sP 1/2 T37 ms E/A ratio1.3MVA (PHT)5.9 cm2 TDI E/E' Iagvcg87.6E/E' Gltfavw28.5 Medial E' Peak V4.60 cm/sLateral E' Peak V5.52 cm/s Pulmonary Valve PV Vmax0.8 m/sPV VTI0.14 mPV Mean GR1.2 mmHg PV Peak GR2.3 mmHg Tricuspid Valve TR Vmax2.2 m/sRAP (EST) 3 tsIgPQJO73.1 mmHg TR Peak GR19.1 mmHg Left Ventricle The left ventricle is normal size. There is normal LV segmental wall motion. Mild concentric left krissy tricular hypertrophy. Left ventricular systolic function is normal, estimated LVEF 55 to 60%. Grade 2 diastolic dysfunction. Right Ventricle The right ventricle is normal size. The right ventricular systolic function is normal. Atria The left atrium size is normal. The right atrium size is normal. Aortic Valve Aortic valve is trileaflet. The leaflets are mildly thickened and calcified. Trace aortic regurgitati on. There is no aortic valvular stenosis. Mitral Valve The mitral valve is normal in structure. The leaflets are mildly thickened and calcified. Trace zenaida l regurgitation. There is no mitral valve stenosis. Tricuspid Valve The tricuspid valve is normal in structure. Trace tricuspid regurgitation. RVSP is normal. Pulmonic Valve Pulmonic valve is not well visualized. Great Vessels The aortic root is normal in size. The IVC is normal in size and collapses >50% with inspiration. Pericardium There is no pericardial effusion. Other Information Quality : Technically difficult study due to body habitus Conclusion The cardiac chambers are normal in size. Mild concentric left ventricular hypertrophy. There is normal LV segmental wall motion. Left ventricular systolic function is normal, estimated LVEF 55 to 60%. Grade 2 diastolic dysfunction. Trace aortic regurgitation. Trace mitral regurgitation. Trace tricuspid regurgitation. PASP is normal. There is no pericardial effusion.
[2024-12-28] VITALS (7 sets, daily range): BP systolic 136–194; BP diastolic 61–91; PULSE 71–78; RESP 16–18; TEMP 97.8–98.1; O2SAT 100
[2024-12-28 04:52] LABS: IMMATURE GRANULOCYTE ABSOLUTE 0.11 K/uL (0-1); NUCLEATED RED BLOOD CELLS 0.0 % (0.0-0.19); PLATELET COUNT (AUTO) 186 K/uL (130-400); RED BLOOD CELL COUNT(AUTO) 3.49 MIL/uL (4.50-6.20); RED CELL DISTRIBUTION WIDTH 13.0 % (11.0-15.5); WHITE BLOOD COUNT (AUTO) 14.5 K/uL (4.8-10.8)
[2024-12-28 05:42] LABS: ASPARTATE AMINOTRANSFERASE 20.0 U/L (10-37); CREATININE 0.9 mg/dL (0.5-1.3); GLOMERULAR FILTR. RATE CALC 83.0 mL/min (>90); GLUCOSE,RANDOM 209.0 mg/dL (70-105); SODIUM SERUM 139.0 mmol/L (136-145); TOTAL PROTEIN, SERUM 5.4 g/dL (6.0-8.3); UREA NITROGEN, BLOOD 16.0 mg/dL (7-18)
[2024-12-28] MEDS: PoTASSium chloRIDE 20MEQ ER 20 MEQ ERTAB PO PRN (06:23)
--- NOTE | 2024-12-28 10:44 | PN ---
[facility] PROGRESS NOTE Date Patient Seen: Dec 28, 2024 Time of Visit: 10:44 Supervising Physician: Guy Hellre MD Primary Care Physician: Dr. Penelope De Los Santos Outpatient Specialists: Patient saw Unknown neurosurgeon two years ago Inpatient Consults: Dr. 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 Extensive gliosis with encephalomalacia in the bilateral frontal lobes and right cerebellar hemisphere, per CT on 12/26/2024. Diffuse cerebral atrophy with chronic microangiopathic ischemic changes, per CT on 12/26/2024 Postsurgical changes in the frontal calvarium with a bony defect and a bone flap in place, per CT on 12/26/2024 Sepsis with UTI is the source, POA Left lower lobe pneumonia, POA, resolved Acute complicated cystitis, POA Grade 2 Diastolic heart failure with the EF of 55-60% POA on 2D echo 12/27/24 Elevated troponin Dehydration 2/2 acute nausea and vomiting Elevated D-dimer, POA, PE was ruled out/pending venous Dopplers Pulmonary nodules,POA Hepatic cyst Cholelithiasis 0.8 cm fat density lesion in the left renal upper pole cortex, 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 Sitting up in hospital bed accompanied by family. He is alert and oriented x4. As per family patient had an episode of confusion last night where he did not recall his sitter breaths. Otherwise mental status unremarkable at this time. No neurological deficits tolerating p.o. diet. Patient's D-dimer is [address] Alvarez, dexamethasone 4 mg q.12 hours We will go ahead and continue five days of antibiotics for suspected community- acquired pneumonia , chest x-ray is good this morning unremarkable. No infiltrates noted. Heparin subQ 12 hours Good O2 saturations Plan: Follow neurosurgical recs, steroids Pending neurosurgery consult. BNP and x-ray in the morning. D-dimer elevated and CTA was negative for PE. We will order venous Dopplers bilateral lower extremities. Follow urine culture REVIEW OF SYSTEMS: General: No malaise or fever. Neurological: No fainting episodes or seizures. HEENT: No nasal congestion or nasal secretion. Respiratory: No cough, shortness of breath, or wheezing Cardiac: No chest pain or palpitations. Gastrointestinal: No vomiting or diarrhea. Genitourinary: No dysuria hematuria. Skin: No rashes or lesions. Hematological: No bruises or bleeding. Musculoskeletal: No joint pains or arthralgias. Psychiatric: No depression or panic attacks. PHYSICAL EXAM: GENERAL: Alert, weak, awake oriented x 3 HEENT: EOMI, Sclera non icteric, moist mucosa NECK: Supple, no JVD, trachea midline LUNGS: Clear breath sounds bilaterally. No wheezes HEART: Regular rate and rhythm. Normal S1 and S2, without murmurs ABD: Abdomen soft, nontender. Bowel sounds present EXT: No clubbing cyanosis or edema NEURO: Alert and oriented to person, place, and some situation, follows commands Vital Signs (last 8hr) Date Time Temp Pulse Resp B/P (MAP) Pulse Ox O2 Delivery O2 Flow Rate FiO2 12/28/24 07:51 97.9 74 16 136/83 97 Room Air 12/28/24 04:47 98.1 71 18 138/61 95 Room Air LABS: Hematology Labs: Test 12/28/24 04:22 12/26/24 18:47 Range/Units White Blood Count 14.5 H 4.8-10.8 K/uL Red Blood Count 3.49 L 4.50-6.20 MIL/uL Hemoglobin 10.5 L 14.0-18.0 g/dL Hematocrit 29.1 L 42-54 % Mean Corpuscular Volume 83.4 79-99 fL Mean Corpuscular Hemoglobin 30.1 27.0-33.0 pg Mean Corpuscular Hemoglobin Concent 36.1 H 32.0-36.0 g/dL Red Cell Distribution Width 13.0 11.0-15.5 % Platelet Count 186 130-400 K/uL Mean Platelet Volume 9.9 7.5-10.5 fL Immature Granulocyte % (Auto) 0.8 0-1 % Neutrophils (%) (Auto) 91.6 H 40.0-77.0 % Lymphocytes (%) (Auto) 5.5 L 21.0-51.0 % Monocytes (%) (Auto) 2.0 L 3.0-13.0 % Eosinophils (%) (Auto) 0.0 0.0-8.0 % Basophils (%) (Auto) 0.1 0.0-5.0 % Neutrophils # (Auto) 13.3 H 1.8-7.7 K/uL Lymphocytes # (Auto) 0.8 L 1.0-4.8 K/uL Monocytes # (Auto) 0.3 0.1-1.0 K/uL Eosinophils # (Auto) 0.00 0.00-0.70 K/uL Basophils # (Auto) 0.01 0.00-0.20 K/uL Absolute Immature Granulocyte (auto 0.11 0-1 K/uL Nucleated Red Blood Cells 0.0 0.0-0.19 % Red Blood Cell Morphology See comments White Cell Morphology Comment See comments Chemistry Labs: Test 12/28/24 06:15 12/28/24 04:22 12/27/24 03:57 12/26/24 18:47 Range/Units Whole Blood Glucose 181 #H 70-110 MG/DL Sodium Level 139 136-145 mmol/L Potassium Level 3.5 3.5-5.1 mmol/L Chloride Level 106 101-111 mmol/L Carbon Dioxide Level 25 21-32 mmol/L Blood Urea Nitrogen 16 7-18 mg/dL Creatinine 0.9 0.5-1.3 mg/dL Glomerular Filtration Rate Calc 83 >90 mL/min Random Glucose 209 H 70-105 mg/dL Total Calcium 8.8 8.5-10.1 mg/dL Total Bilirubin 0.6 0.2-1.0 mg/dL Aspartate Amino Transf (AST/SGOT) 20 10-37 U/L Alanine Aminotransferase (ALT/SGPT) 11 L 12-78 U/L Alkaline Phosphatase 75 50-136 U/L Total Protein 5.4 L 6.0-8.3 g/dL Albumin 2.3 L 3.5-5.0 g/dL Phosphorus Level 2.6 2.5-4.9 mg/dL Magnesium Level 1.40 L 1.80-2.40 mg/dL Troponin I High Sensitivity 111 *H 4-75 ng/L Thyroid Stimulating Hormone (TSH) 0.59 0.36-3.74 uIU/mL Hemoglobin A1c 7.2 H 4.0-6.0 % Estimated Average Glucose (eAG) 160 H 70-126 mg/dL Coagulation Labs: Test 12/26/24 22:28 Range/Units Prothrombin Time 11.7 H 9.6-11.6 SEC Prothromb Time International Ratio 1.12 0.85-1.15 Activated Partial Thromboplast Time 26.8 26.3-35.5 SEC D-Dimer Quantitative (PE/DVT) 1595 *H 0-500 ng/mL DIAGNOSTICS / RADIOLOGY RESULTS: [facility] [address] [place] [address] IMAGING REPORT Signed PATIENT: KAYY COULTER MR#: [id number] : 1940 SEX: M AGE: 84 LOCATION: 2AH ORDER STATUS: ADM IN REPORT#: [id number] SERVICE [id number] REASON: swelling ORDERING PHYSICIAN: CODEY RUIZ PROCEDURE: HEAD WO - CT HEAD/BRAIN W/O CONTRAST EXAM: CT Head Without IV contrast. CLINICAL HISTORY: swelling TECHNIQUE: Axial computed tomography images of the head/brain without intravenous contrast. COMPARISON: 12/27 FINDINGS: BRAIN: Extensive gliosis with encephalomalacia in the bilateral frontal lobes and right cerebellar hemisphere. Diffuse cerebral atrophy in the form of prominent cortical sulci, basal cisterns, and bilateral sylvian fissures. Periventricular hypodensities are concerning for chronic microangiopathic ischemic changes. 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 The lesion is suboptimally evaluated due to the non-contrast nature of the study. The right cerebellopontine angle cistern appears prominent. No evidence of acute hemorrhage or acute territorial infarct. No midline shift or extra-axial collections. VENTRICLES: Mild prominence of the ventricular system without hydrocephalus. ORBITS: The orbits are unremarkable. SINUSES AND MASTOIDS: The paranasal sinuses and mastoid air cells are clear. BONES: Diffuse thinning of the calvarium in the frontal region with a focal bony defect along the inner table of the frontal bone and a bone flap in place. No acute fracture. SOFT TISSUES: Unremarkable.IMPRESSION: 1. No acute intracranial findings. 2. 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 3. Extensive bilateral frontal and right cerebellar gliosis and encephalomalacia. 4. Post-surgical changes in the frontal bone. /[place] DICTATED BY: MARTHA HUMPHRIES Jr., MD DATE: 12/28/241246 ELECTRONICALLY SIGNED BY: MARTHA HUMPHRIES Jr., MD DATE: 12/28/241246 PLAN Follow Neurosurgery recommendations. Venous Doppler bilateral lower extremity to rule out DVT Maintain O2 sats above 92% Neuro checks NEURO: Minimize central acting medications as possible. Maintain fall precautions, adequate lighting during the day PULMONARY: Supplemental 02 as needed. Maintain aspiration precautions at all times CARDIOVASCULAR: Follow hemodynamics. Vital signs per facility protocol GI & NUTRITION: Continue with nutritional support. Continue stool softeners and laxatives as needed. KIDNEYS & ELECTROLYTES: Strict monitoring of intake, output and overall fluid balance. Avoid nephrotoxic medications to the extent possible. Medications to be dosed according to renal function. Monitor electrolytes and replace as needed ENDOCRINE: Maintain blood glucose between 100-180 at all times. Hypoglycemia protocol in place INFECTIOUS DISEASE: Trend temperature, WBC and procalcitonin level Follow cultures, deescalate antibiotics as soon as possible. Panculture if new onset fever ONCOLOGY/HEMATOLOGY/COAGULATION: Monitor for s/s of bleeding Monitor hemoglobin, coagulation studies as needed SKIN: Pressure ulcer prevention per facility protocol Specialty mattress ORTHO/REHAB: Continue PT/OT Prophylaxis: Continue GI and DVT prophylaxis Code Status: Full Resuscitation Disposition: SHARON DUMONT Dec 28, 2024 10:44
--- NOTE | 2024-12-28 11:00 | HMCIMG ---
EXAM: MR Brain and IAC Without and with IV Contrast. CLINICAL HISTORY: Brain tumor TECHNIQUE: Multiplanar multi-sequence MRI of the brain and IAC with contrast. COMPARISON: CT dated December 26, 2024 FINDINGS: BRAIN: Chronic ischemic changes in bilateral paraventricular deep white matter. Gliosis in both frontal and basifrontal regions. Post-operative changes along the frontal convexity. No acute intracranial abnormality, specifically cortical infarction, or hemorrhage. The marrow signal within the skull base and calvarium is intact. The paranasal sinuses are clear. IAC: There is a well-defined, solid cystic heterogeneously enhancing extra-axial lesion along the right cerebellopontine angle with intracanalicular extension and measures approximately 3.5 x 3.6 x 4.8 cm with perilesional edema and mass effect over the right side of the midbrain, thong, and the right cerebellum with effacement of the fourth ventricle and mild supratentorial ventriculomegaly. The internal auditory canal bilaterally is normal in signal. The seventh and eighth nerve bundles are intact. Inner ear structures are normal. Mastoid air cells demonstrate no abnormal signal. IMPRESSION: 1. 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 2. Cystic encephalomalacia in both frontal and basifrontal regions. 3. Post-operative changes along the frontal convexity. Compared to the previous CT dated December 26, 2024, no significant interval change. /[place]
--- NOTE | 2024-12-28 11:48 | HMCIMG ---
EXAM: CT Head Without IV contrast. CLINICAL HISTORY: swelling TECHNIQUE: Axial computed tomography images of the head/brain without intravenous contrast. COMPARISON: 12/27 FINDINGS: BRAIN: Extensive gliosis with encephalomalacia in the bilateral frontal lobes and right cerebellar hemisphere. Diffuse cerebral atrophy in the form of prominent cortical sulci, basal cisterns, and bilateral sylvian fissures. Periventricular hypodensities are concerning for chronic microangiopathic ischemic changes. 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 The lesion is suboptimally evaluated due to the non-contrast nature of the study. The right cerebellopontine angle cistern appears prominent. No evidence of acute hemorrhage or acute territorial infarct. No midline shift or extra-axial collections. VENTRICLES: Mild prominence of the ventricular system without hydrocephalus. ORBITS: The orbits are unremarkable. SINUSES AND MASTOIDS: The paranasal sinuses and mastoid air cells are clear. BONES: Diffuse thinning of the calvarium in the frontal region with a focal bony defect along the inner table of the frontal bone and a bone flap in place. No acute fracture. SOFT TISSUES: Unremarkable.IMPRESSION: 1. No acute intracranial findings. 2. 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 3. Extensive bilateral frontal and right cerebellar gliosis and encephalomalacia. 4. Post-surgical changes in the frontal bone. /[place]
--- NOTE | 2024-12-28 14:51 | NUR ---
SPOKE WITH CONNOR,RN NURSE FOR DR. BURR. SHE STATED SHE WOULD RELAY MESSAGE TO DR. BURR AND HAVE HIM REVIEW CT OF HEAD AND NECK. SHE ALSO STATED HE WOULD ROUND LATER ON TONIGHT OR TOMORROW HE IS VERY BUSY IN THE OR TODAY.
--- NOTE | 2024-12-28 16:07 | HMCIMG ---
EXAM: US Duplex Bilateral Lower Extremity Veins. CLINICAL HISTORY: R/O DVT TECHNIQUE: Real-time ultrasound scan of the veins of the bilateral lower extremities with grayscale, compression, color Doppler, and spectral Doppler were performed from the common femoral vein to the calf veins bilaterally. COMPARISON: None available. FINDINGS: DEEP VEINS: The common femoral, femoral, and popliteal veins are echolucent and compressible. These vessels demonstrate respiratory variation and augmentation. There is normal color Doppler flow throughout. The visualized calf veins are also patent. The right and left common femoral vein (CFV) are patent, compressible with normal color and spectral Doppler flow. The right and left profunda femoris vein (PFV) are patent, compressible. The right and left superficial femoral vein (proximal, mid, distal) are patent, fully compressible with normal augmentation and flow. The right and left popliteal vein (POP V) are patent, compressible with normal phasicity and augmentation. The right and left posterior tibial and peroneal veins (PTV) are patent, compressible. There is no evidence of intraluminal thrombus in either lower extremity and both are negative for DVT. No evidence of deep venous thrombosis (DVT) in either lower extremity. SUPERFICIAL VEINS: The right and left great saphenous vein (GSV) are patent, compressible. SOFT TISSUES: Unremarkable. IMPRESSION: 1. Negative bilateral lower extremity venous duplex. No evidence of deep venous thrombosis (DVT) in either lower extremity. /[place]
--- NOTE | 2024-12-28 19:00 | NUR ---
BEDSIDE SWALLOW EVALUATION COMPLETED. No s/s of aspiration. Recommend minced and moist solids, thin liquids and pills crushed with pureed as tolerated. Compensatory strategies: 1. sit upright during oral intake 2. small bites/sips 3. slow oral intake TARGET SETTER reviewed results and recommendations with patient, family and nurse [place]. TARGET SETTER educate patient on risks and consequences of aspiration. Speech therapy not warranted at this time. All questions answered. Addendum: 12/29/[address] GUNJAN CHOU Amended: Links added.
[2024-12-28] MEDS ORDERED: ASPI-449 PO (20:04)
[2024-12-28] MEDS ORDERED: METF-444 PO (20:04)
[2024-12-28] MEDS ORDERED: LISI20TA24 PO (20:07)
[2024-12-28] MEDS ORDERED: LINA5TAB PO (20:07)
[2024-12-28] MEDS ORDERED: ATOR20TA65 PO (20:07)
[2024-12-28] MEDS ORDERED: LEVO50CA5 PO (20:07)
[2024-12-28] MEDS: DOXYCYCLINE HYCLATE 100 MG TABLET PO SCH (21:11)
--- NOTE | 2024-12-28 21:43 | HMCIMG ---
EXAM: CR Chest, single view. CLINICAL HISTORY: PP COMPARISON: Prior chest radiograph dated 27 December 2024. FINDINGS: The lungs show no infiltrate or other acute findings. No pleural effusion or pneumothorax. The cardiomediastinal silhouette is within normal limits. No acute osseous abnormality. IMPRESSION: No acute cardiopulmonary pathology is evident. Compared to the prior study, there is an interval resolution of the subsegmental atelectasis of the left lower lobe. /[place]
[2024-12-29] VITALS (9 sets, daily range): BP systolic 107–174; BP diastolic 53–78; PULSE 62–69; RESP 16–20; TEMP 97.8–98.7; O2SAT 100
[2024-12-29 04:37] LABS: IMMATURE GRANULOCYTE ABSOLUTE 0.10 K/uL (0-1); NUCLEATED RED BLOOD CELLS 0.0 % (0.0-0.19); PLATELET COUNT (AUTO) 188 K/uL (130-400); RED BLOOD CELL COUNT(AUTO) 3.49 MIL/uL (4.50-6.20); RED CELL DISTRIBUTION WIDTH 12.9 % (11.0-15.5); WHITE BLOOD COUNT (AUTO) 14.2 K/uL (4.8-10.8)
[2024-12-29 05:11] LABS: ASPARTATE AMINOTRANSFERASE 21.0 U/L (10-37); CREATININE 1.0 mg/dL (0.5-1.3); GLOMERULAR FILTR. RATE CALC 73.0 mL/min (>90); GLUCOSE,RANDOM 175.0 mg/dL (70-105); SODIUM SERUM 138.0 mmol/L (136-145); TOTAL PROTEIN, SERUM 5.3 g/dL (6.0-8.3); UREA NITROGEN, BLOOD 25.0 mg/dL (7-18)
--- NOTE | 2024-12-29 07:35 | NUR ---
DR. ALEXIS HERE AND ASSESSED PT AND SPOKE WITH GRANDSON CONCERNING POSSIBLE PLAN OF CARE AND DISCUSSED THE RISKS INVOLVED WITH ANY PROCEDURES TO BE DONE. GRANDSON STATED THAT HE WOULD CALL FAMILY [facility]ERS AND DISCUSS THE OPTIONS AND PLAN OF CARE AND WOULD LET NURSING STAFF KNOW AND THEN DR. ALEXIS TO BE NOTIFIED FAMILY DECISION ON ANY PROCEDURES TO BE DONE.
[2024-12-29] MEDS ORDERED: VANCOMYCIN PROTOCOL PER PHARMACY IV SCH (13:00)
--- NOTE | 2024-12-29 13:04 | PN ---
[facility] PROGRESS NOTE Date Patient Seen: Dec 29, 2024 Time of Visit: 12:30 Supervising Physician: Lex Manzo MD Primary Care Physician: Dr. Penelope De Los Santos Outpatient Specialists: Patient saw Unknown neurosurgeon two years ago Inpatient Consults: Dr. 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 Diffuse cerebral atrophy with chronic microangiopathic ischemic changes, per CT on 12/26/2024 Postsurgical changes in the frontal calvarium with a bony defect and a bone flap in place, per CT on 12/26/2024 Grade 2 Diastolic heart failure with the EF of 55-60% POA on 2D echo 12/27/24 Elevated troponin Elevated D-dimer, POA negative for PE and DVT Pulmonary nodules,POA Hepatic cyst Cholelithiasis 0.8 cm fat density lesion in the left renal upper pole cortex, likely an angiomyolipoma Acute kidney injury, GFR 73 (no other GFR to compare) Anemia chronic disease Electrolyte derangement (Hypokalemia, hypomagnesemia, hypochloremia) Diabetes mellitus with hyperglycemia Hypoalbuminemia Chronic problem list: DM type 2, HTN, hypothyroidism INTERVAL HISTORY: The patient has been seen by Dr. Michel. As Per pt he had be seen by him 2 yrs ago and was noted to have the brain mass back then which was deemed inoperable by Neurosurgery. Per RN Dr. Borjas offered a possible SEPARATIONS SCIENTIST shunt. Family requested time to make a decision between moving forward with surgical procedure and possibly going home on hospice for patient. At the time of my visit grandson and other members of the family at the bedside requested social media designer to talk about what hospice may off. wash worker consulted. Otherwise patient is hemodynamically stable saturating 97% at room air and afebrile. Patient denies any headache nausea or vomiting or focal weakness. White count of 14.2 trending down H&H is 10.3/29.5, neutrophils 91.8. BUN 25 creatinine 1.0 GFR of 73 glucose 175 mg/dL procalcitonin 6.30. Urine culture growing Enterococcus faecalis-susceptible to vancomycin. DC Rocephin and doxy add vancomycin per protocol. Plan: Follow neurosurgical recs, steroids Vancomycin per protocol Deescalate doxycycline and Rocephin. Magnesium protocol Follow urine culture Consult social media designer for hospice resources REVIEW OF SYSTEMS: General: No malaise or fever. Neurological: No fainting episodes or seizures. HEENT: No nasal congestion or nasal secretion. Respiratory: No cough, shortness of breath, or wheezing Cardiac: No chest pain or palpitations. Gastrointestinal: No vomiting or diarrhea. Genitourinary: No dysuria hematuria. Skin: No rashes or lesions. Hematological: No bruises or bleeding. Musculoskeletal: No joint pains or arthralgias. Psychiatric: No depression or panic attacks. PHYSICAL EXAM: GENERAL: Alert, weak, awake oriented x 2-3 HEENT: EOMI, Sclera non icteric, moist mucosa NECK: Supple, no JVD, trachea midline LUNGS: Clear breath sounds bilaterally. No wheezes HEART: Regular rate and rhythm. Normal S1 and S2, without murmurs ABD: Abdomen soft, nontender. Bowel sounds present EXT: No clubbing cyanosis or edema NEURO: Alert and oriented to person, place, and some situation, follows commands Vital Signs (last 8hr) Date Time Temp Pulse Resp B/P (MAP) Pulse Ox O2 Delivery O2 Flow Rate FiO2 12/29/24 08:26 97.9 63 16 134/68 97 Room Air 12/29/24 07:45 100 Room Air* 0 21 LABS: Hematology Labs: Test 12/29/24 04:10 12/28/24 04:22 Range/Units White Blood Count 14.2 H 4.8-10.8 K/uL Red Blood Count 3.49 L 4.50-6.20 MIL/uL Hemoglobin 10.3 L 14.0-18.0 g/dL Hematocrit 29.5 L 42-54 % Mean Corpuscular Volume 84.5 79-99 fL Mean Corpuscular Hemoglobin 29.5 27.0-33.0 pg Mean Corpuscular Hemoglobin Concent 34.9 32.0-36.0 g/dL Red Cell Distribution Width 12.9 11.0-15.5 % Platelet Count 188 130-400 K/uL Mean Platelet Volume 9.7 7.5-10.5 fL Immature Granulocyte % (Auto) 0.7 0-1 % Neutrophils (%) (Auto) 91.8 H 40.0-77.0 % Lymphocytes (%) (Auto) 4.4 L 21.0-51.0 % Monocytes (%) (Auto) 3.0 3.0-13.0 % Eosinophils (%) (Auto) 0.0 0.0-8.0 % Basophils (%) (Auto) 0.1 0.0-5.0 % Neutrophils # (Auto) 13.0 H 1.8-7.7 K/uL Lymphocytes # (Auto) 0.6 L 1.0-4.8 K/uL Monocytes # (Auto) 0.4 0.1-1.0 K/uL Eosinophils # (Auto) 0.00 0.00-0.70 K/uL Basophils # (Auto) 0.01 0.00-0.20 K/uL Absolute Immature Granulocyte (auto 0.10 0-1 K/uL Nucleated Red Blood Cells 0.0 0.0-0.19 % Red Blood Cell Morphology See comments Chemistry Labs: Test 12/29/24 11:14 12/29/24 04:10 Range/Units Whole Blood Glucose 189 H 70-110 MG/DL Sodium Level 138 136-145 mmol/L Potassium Level 3.5 3.5-5.1 mmol/L Chloride Level 106 101-111 mmol/L Carbon Dioxide Level 25 21-32 mmol/L Blood Urea Nitrogen 25 H 7-18 mg/dL Creatinine 1.0 0.5-1.3 mg/dL Glomerular Filtration Rate Calc 73 >90 mL/min Random Glucose 175 H 70-105 mg/dL Total Calcium 8.3 L 8.5-10.1 mg/dL Magnesium Level 1.70 L 1.80-2.40 mg/dL Total Bilirubin 0.4 # 0.2-1.0 mg/dL Aspartate Amino Transf (AST/SGOT) 21 10-37 U/L Alanine Aminotransferase (ALT/SGPT) 15 # 12-78 U/L Alkaline Phosphatase 86 50-136 U/L Total Protein 5.3 L 6.0-8.3 g/dL Albumin 2.2 L 3.5-5.0 g/dL Procalcitonin 6.30 H 0.05-0.5 ng/mL DIAGNOSTICS / RADIOLOGY RESULTS: [facility] [address] IMAGING REPORT Signed PATIENT: KAYY COULTER MR#: [id number] : 1940 SEX: M AGE: 84 LOCATION: 2AH ORDER 135 STATUS: ADM IN REPORT#: [id number] SERVICE 135 REASON: rule out DVT ORDERING PHYSICIAN: SHARON PLUMMER PROCEDURE: VENOUS CLARKE - US VENOUS DOPPLER BILATERAL EXAM: US Duplex Bilateral Lower Extremity Veins. CLINICAL HISTORY: R/O DVT TECHNIQUE: Real-time ultrasound scan of the veins of the bilateral lower extremities with grayscale, compression, color Doppler, and spectral Doppler were performed from the common femoral vein to the calf veins bilaterally. COMPARISON: None available. FINDINGS: DEEP VEINS: The common femoral, femoral, and popliteal veins are echolucent and compressible. These vessels demonstrate respiratory variation and augmentation. There is normal color Doppler flow throughout. The visualized calf veins are also patent. The right and left common femoral vein (CFV) are patent, compressible with normal color and spectral Doppler flow. The right and left profunda femoris vein (PFV) are patent, compressible. The right and left superficial femoral vein (proximal, mid, distal) are patent, fully compressible with normal augmentation and flow. The right and left popliteal vein (POP V) are patent, compressible with normal phasicity and augmentation. The right and left posterior tibial and peroneal veins (PTV) are patent, compressible. There is no evidence of intraluminal thrombus in either lower extremity and both are negative for DVT. No evidence of deep venous thrombosis (DVT) in either lower extremity. SUPERFICIAL VEINS: The right and left great saphenous vein (GSV) are patent, compressible. SOFT TISSUES: Unremarkable. IMPRESSION: 1. Negative bilateral lower extremity venous duplex. No evidence of deep venous thrombosis (DVT) in either lower extremity. /Yoder DICTATED BY: TONIO HERNANDEZ MD DATE: 12/28/241705 ELECTRONICALLY SIGNED BY: TONIO HERNANDEZ MD DATE: 12/28/24 7104 PLAN NEURO: Minimize central acting medications as possible. Maintain fall precautions, adequate lighting during the day PULMONARY: Supplemental 02 as needed. Maintain aspiration precautions at all times CARDIOVASCULAR: Follow hemodynamics. Vital signs per facility protocol GI & NUTRITION: Continue with nutritional support. Continue stool softeners and laxatives as needed. KIDNEYS & ELECTROLYTES: Strict monitoring of intake, output and overall fluid balance. Avoid nephrotoxic medications to the extent possible. Medications to be dosed according to renal function. Monitor electrolytes and replace as needed ENDOCRINE: Maintain blood glucose between 100-180 at all times. Hypoglycemia protocol in place INFECTIOUS DISEASE: Trend temperature, WBC and procalcitonin level Follow cultures, deescalate antibiotics as soon as possible. Panculture if new onset fever ONCOLOGY/HEMATOLOGY/COAGULATION: Monitor for s/s of bleeding Monitor hemoglobin, coagulation studies as needed SKIN: Pressure ulcer prevention per facility protocol Specialty mattress ORTHO/REHAB: Continue PT/OT Prophylaxis: Continue GI and DVT prophylaxis Code Status: Full Resuscitation Disposition: TBD ATTESTATION BY PHYSICIAN The patient has been seen and evaluated, the case has been discussed with the CINETECHNICIAN, I agree with the clinical findings and plan of care. Lex Manzo MD, [facility] [address] [facility] Dec 29, 2024 13:04
--- NOTE | 2024-12-29 13:14 | CONS ---
CHIEF COMPLAINT: Dizziness, headaches, and nauseous. 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 He came to the Emergency Room with nausea, vomiting, weakness in the right leg, and the patient was found to have a lesion on the head of the cerebellopontine angle. There is a suspected history of cancer on this patient. We do not have this information available. He denies any paralysis, lack of function and states nausea, vomiting, dizziness, and the right leg is weak when trying to put pressure and walk. PAST MEDICAL HISTORY: Brain tumor. ALLERGIES: No history of any allergies. SOCIAL HISTORY: The patient has good social support with the sons taking care of him. He denies any use of alcohol, marijuana, or drugs. REVIEW OF SYSTEMS: GENERAL: Denies any fever, now he has episode of vomiting. HEAD, EYES, EARS, NOSE AND THROAT: Denies any discharge from the nose or discharge from the mouth. NECK: Denies any masses or neck issues. GENITALIA: Denies any masses or abnormal growth. No nodules. ABDOMEN: Denies any abdominal pain, dyspepsia, change in fecal size or fecal habits. HEART: Denies any palpitation. Denies chest pain. Denies any angina. LUNGS: Denies any shortness of breath, dyspnea, or orthopnea. NEUROLOGICAL: Problems with balance, weakness in the right leg, now nauseous, vomits. PHYSICAL EXAMINATION: VITAL SIGNS: His blood pressure is 140s/80, heart rate , respiratory rate 14. HEAD, EARS, EYES, NOSE AND THROAT: Normocephalic, atraumatic. NECK: Supple. No tenderness. No adenopathy. CHEST: Symmetric. Normal . ABDOMEN: Scaphoid, soft, depressible, nontender. EXTREMITIES: No cyanosis, no clothing. Pulses 2+ bilaterally. SKIN: No areas of lesions on the skin, hyperpigmentation or plaques. IMAGING DATA: This patient has a CT scan that shows cerebellopontine mass, right side, with edema and also some evidence of hydrocephalus with . 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 This is an 84-year-old male patient decided to have surgery, either the options are to put a ADMINISTRATOR shunt and try to divert to the CSF out of two decompressive ventricles and see if the patient gets some improvement or going ahead and do occipital craniectomy and resection of the mass with probably possible ventriculostomy. The family, to my understanding, apparently had decided not to do any aggressive measurements on the patient, and at this moment, he is more symptomatic and would like to see if they change their mind and they want to do something about this. Obviously, this will be a complicated surgery that cannot be performed in this institution. We do not have proper microscope, neither navigation system, neither micro instruments to perform the surgery. More likely, if the family decides to do surgery, the patient is going to have to be transferred to the next hospital available in this [facility]. Thank you for the consultation. TID: [id number] RECEIPT: [id number]
--- NOTE | 2024-12-29 13:18 | NUR ---
HOSPICE EDUCATION Sw met with family and educated on hospice services and answered all questions asked. Family voiced understanding and seem like they are open to taking pt home with hospice. Sw explained referral process to family if they decide to move forward with hospice. Family to discuss and make decision.
[2024-12-29] MEDS: VANCOMYCIN 1.5 GM/250 ML BAG 250 ML IV ONE (13:43)
--- NOTE | 2024-12-29 16:02 | NUR ---
SPEECH NOTE: FOLLOW UP PLAIN CLOTHES POLICE OFFICER coordinated with nurse Jac Monreal. Pt tolerating diet recommendations with no s/s of aspiration. All questions answered at this time. Addendum: 12/29/[address] GUNJAN CHOU Amended: Links added.
[2024-12-30] VITALS (9 sets, daily range): BP systolic 127–173; BP diastolic 69–79; PULSE 55–61; RESP 16–20; TEMP 97.5–98; O2SAT 98–100
[2024-12-30 04:52] LABS: IMMATURE GRANULOCYTE ABSOLUTE 0.11 K/uL (0-1); NUCLEATED RED BLOOD CELLS 0.0 % (0.0-0.19); PLATELET COUNT (AUTO) 183 K/uL (130-400); RED BLOOD CELL COUNT(AUTO) 3.61 MIL/uL (4.50-6.20); RED CELL DISTRIBUTION WIDTH 12.9 % (11.0-15.5); WHITE BLOOD COUNT (AUTO) 10.5 K/uL (4.8-10.8)
[2024-12-30 05:28] LABS: ASPARTATE AMINOTRANSFERASE 21.0 U/L (10-37); CREATININE 1.1 mg/dL (0.5-1.3); GLOMERULAR FILTR. RATE CALC 65.0 mL/min (>90); GLUCOSE,RANDOM 253.0 mg/dL (70-105); SODIUM SERUM 137.0 mmol/L (136-145); TOTAL PROTEIN, SERUM 5.4 g/dL (6.0-8.3); UREA NITROGEN, BLOOD 26.0 mg/dL (7-18)
[2024-12-30] MEDS: VANCOMYCIN 750MG VIAL IVPB SCH (06:12)
--- NOTE | 2024-12-30 09:48 | NUR ---
Hospice f/u sw made room visit and spoke to grand children at bedside. Per family, they are in agreement for hospice services, but SW will need to speak to pt's children for consent. Family to inform nurse when they are in room for consent.
--- NOTE | 2024-12-30 11:02 | PN ---
[facility] PROGRESS NOTE Date Patient Seen: Dec 30, 2024 Time of Visit: 11:02 Supervising Physician: Lex Manzo MD Primary Care Physician: Dr. Penelope De Los Santos Outpatient Specialists: Patient saw Unknown neurosurgeon two years ago Inpatient Consults: Dr. 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 No major overnight events. 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 Pt denies headache, diziness, nausea or vomiting. Blood Sugar has been in the 200's will increase ISS to q4hrs. awaiting further decision of hospice VS agrssive measures such as ASSISTANT PROFESSOR OF ECONOMICS shunt placement as offered by neurosurgeon.. Plan: Follow neurosurgical recs, steroids Vancomycin per protocol Magnesium protocol Follow urine culture Consult social science teacher for hospice resources -pending decision from family REVIEW OF SYSTEMS: General: No malaise or fever. Neurological: No fainting episodes or seizures. HEENT: No nasal congestion or nasal secretion. Respiratory: No cough, shortness of breath, or wheezing Cardiac: No chest pain or palpitations. Gastrointestinal: No vomiting or diarrhea. Genitourinary: No dysuria hematuria. Skin: No rashes or lesions. Hematological: No bruises or bleeding. Musculoskeletal: No joint pains or arthralgias. Psychiatric: No depression or panic attacks. PHYSICAL EXAM: GENERAL: Alert, weak, awake oriented x 2-3 HEENT: EOMI, Sclera non icteric, moist mucosa NECK: Supple, no JVD, trachea midline LUNGS: Clear breath sounds bilaterally. No wheezes HEART: Regular rate and rhythm. Normal S1 and S2, without murmurs ABD: Abdomen soft, nontender. Bowel sounds present EXT: No clubbing cyanosis or edema NEURO: Alert and oriented to person, place, and some situation, follows commands Vital Signs (last 8hr) Date Time Temp Pulse Resp B/P (MAP) Pulse Ox O2 Delivery O2 Flow Rate FiO2 12/30/24 08:00 97.5 57 16 127/70 99 Room Air 12/30/24 03:45 97.5 58 20 140/73 100 Room Air LABS: Hematology Labs: Test 12/30/24 04:34 Range/Units White Blood Count 10.5 4.8-10.8 K/uL Red Blood Count 3.61 L 4.50-6.20 MIL/uL Hemoglobin 10.6 L 14.0-18.0 g/dL Hematocrit 30.6 L 42-54 % Mean Corpuscular Volume 84.8 79-99 fL Mean Corpuscular Hemoglobin 29.4 27.0-33.0 pg Mean Corpuscular Hemoglobin Concent 34.6 32.0-36.0 g/dL Red Cell Distribution Width 12.9 11.0-15.5 % Platelet Count 183 130-400 K/uL Mean Platelet Volume 9.8 7.5-10.5 fL Immature Granulocyte % (Auto) 1.0 0-1 % Neutrophils (%) (Auto) 89.8 H 40.0-77.0 % Lymphocytes (%) (Auto) 7.0 L 21.0-51.0 % Monocytes (%) (Auto) 2.1 L 3.0-13.0 % Eosinophils (%) (Auto) 0.0 0.0-8.0 % Basophils (%) (Auto) 0.1 0.0-5.0 % Neutrophils # (Auto) 9.4 H 1.8-7.7 K/uL Lymphocytes # (Auto) 0.7 L 1.0-4.8 K/uL Monocytes # (Auto) 0.2 0.1-1.0 K/uL Eosinophils # (Auto) 0.00 0.00-0.70 K/uL Basophils # (Auto) 0.01 0.00-0.20 K/uL Absolute Immature Granulocyte (auto 0.11 0-1 K/uL Nucleated Red Blood Cells 0.0 0.0-0.19 % Chemistry Labs: Test 12/30/24 06:27 12/30/24 04:34 Range/Units Whole Blood Glucose 208 H 70-110 MG/DL Sodium Level 137 136-145 mmol/L Potassium Level 4.0 3.5-5.1 mmol/L Chloride Level 105 101-111 mmol/L Carbon Dioxide Level 24 21-32 mmol/L Blood Urea Nitrogen 26 H 7-18 mg/dL Creatinine 1.1 0.5-1.3 mg/dL Glomerular Filtration Rate Calc 65 >90 mL/min Random Glucose 253 H 70-105 mg/dL Total Calcium 8.2 L 8.5-10.1 mg/dL Magnesium Level 1.90 1.80-2.40 mg/dL Total Bilirubin 0.4 0.2-1.0 mg/dL Aspartate Amino Transf (AST/SGOT) 21 10-37 U/L Alanine Aminotransferase (ALT/SGPT) 18 12-78 U/L Alkaline Phosphatase 99 50-136 U/L Total Protein 5.4 L 6.0-8.3 g/dL Albumin 2.3 L 3.5-5.0 g/dL Procalcitonin 3.04 H 0.05-0.5 ng/mL DIAGNOSTICS / RADIOLOGY RESULTS: [ ] PLAN NEURO: Minimize central acting medications as possible. Maintain fall precautions, adequate lighting during the day PULMONARY: Supplemental 02 as needed. Maintain aspiration precautions at all times CARDIOVASCULAR: Follow hemodynamics. Vital signs per facility protocol GI & NUTRITION: Continue with nutritional support. Continue stool softeners and laxatives as needed. KIDNEYS & ELECTROLYTES: Strict monitoring of intake, output and overall fluid balance. Avoid nephrotoxic medications to the extent possible. Medications to be dosed according to renal function. Monitor electrolytes and replace as needed ENDOCRINE: Maintain blood glucose between 100-180 at all times. Hypoglycemia protocol in place INFECTIOUS DISEASE: Trend temperature, WBC and procalcitonin level Follow cultures, deescalate antibiotics as soon as possible. Panculture if new onset fever ONCOLOGY/HEMATOLOGY/COAGULATION: Monitor for s/s of bleeding Monitor hemoglobin, coagulation studies as needed SKIN: Pressure ulcer prevention per facility protocol Specialty mattress ORTHO/REHAB: Continue PT/OT Prophylaxis: Continue GI and DVT prophylaxis Code Status: Full Resuscitation Disposition: TBD ATTESTATION BY PHYSICIAN The patient has been seen and evaluated, the case has been discussed with the ELECTROMECHANICAL EQUIPMENT ASSEMBLER, I agree with the clinical findings and plan of care. Lex Manzo MD, [facility] Dec 30, 2024 11:02
--- NOTE | 2024-12-30 11:38 | NUR ---
Hospice f/u Sw visited with pt's daughter and son in law that just arrived from [place]. Sw educated on hospice services in hospice home, and at home. Family was considering taking pt home and making arrangement at later date. Explained to daughter they could do that, but they would need to contact p's PCP to arrange from his office once they are ready for hospice to start. Explained the referral process once consent for hospice recd. Daughter voiced understanding and she will reach out to siblings to decided. SW to f/u
--- NOTE | 2024-12-30 15:33 | NUR ---
SS f/u Pt's daughter states she has not spoke o all her brothers because they are at work. Family needs to decide where pt will dc home to and who will be caring for him. Daugher will try and have answer today, but may be in am. CM made aware
[2024-12-31 03:00] VITALS: BP 132/57; PULSE 59; RESP 18; TEMP 98.6
[2024-12-31 05:28] LABS: IMMATURE GRANULOCYTE ABSOLUTE 0.09 K/uL (0-1); NUCLEATED RED BLOOD CELLS 0.0 % (0.0-0.19); PLATELET COUNT (AUTO) 217 K/uL (130-400); RED BLOOD CELL COUNT(AUTO) 3.65 MIL/uL (4.50-6.20); RED CELL DISTRIBUTION WIDTH 12.7 % (11.0-15.5); WHITE BLOOD COUNT (AUTO) 8.2 K/uL (4.8-10.8)
[2024-12-31 05:44] LABS: ASPARTATE AMINOTRANSFERASE 21.0 U/L (10-37); CREATININE 1.0 mg/dL (0.5-1.3); GLOMERULAR FILTR. RATE CALC 73.0 mL/min (>90); GLUCOSE,RANDOM 178.0 mg/dL (70-105); SODIUM SERUM 136.0 mmol/L (136-145); TOTAL PROTEIN, SERUM 5.1 g/dL (6.0-8.3); UREA NITROGEN, BLOOD 26.0 mg/dL (7-18); VANCOMYCIN TROUGH 11.9 UG/ML (10.0-20.0)
[2024-12-31 07:00] VITALS: BP 160/83; PULSE 59; RESP 16; TEMP 98
[2024-12-31 07:25] VITALS: O2SAT 100
--- NOTE | 2024-12-31 09:32 | NUR ---
HOSPICE F/U Sw met with pt's family to f/u on decision. Family is still undecided related to their wanting to take pt to [facility] to see sons that can not come to [place]. This is why family was considering hospice after they return from [place]. Family wants to discuss travel for pt with MD. If MD feels it is not safe for pt travel,, family will discharge with hospice. Sw updated nurse Jac Mejia and Linda WHITLOCK of above.
[2024-12-31 11:00] VITALS: BP 173/87; PULSE 60; RESP 18; TEMP 98.6
--- NOTE | 2024-12-31 11:25 | NUR ---
DR. BURR WAS CALLED AND NOTIFIED OF FAMILY'S DECISION AGAINST PT HAVING SURGERY AND HE SAID THAT WOULD BE FIND WITH HIM.
--- NOTE | 2024-12-31 13:57 | NUR ---
SS f/u Holly spoke to KAMLESH Mckeon. Linda has spoken to family related to travel to [place]. Pt can dc, family must decide on hospice at dc or thru PCP. Sw met with daughter and son in law at bedside and informed of need for decision since pt is ready for for dc. Daughter stated she needed to call her brother and would let me know decision. Jac Mejia, nurse informed and will call Sw when daughter returns to room.
--- NOTE | 2024-12-31 15:45 | NUR ---
CM note Pt
--- NOTE | 2024-12-31 15:53 | NUR ---
CM note Pt family at bedside, discussed hospice vs home. Family in agreement to take pt home without hospice and verbalized would like to followup with PCP next week.
[2024-12-31 16:00] VITALS: BP 173/78; PULSE 67; RESP 18; TEMP 98
[2024-12-31] MEDS ORDERED: DEXA4TAB PO (16:58)
[2024-12-31] MEDS ORDERED: AMOX500C2 PO (17:00)
--- NOTE | 2024-12-31 18:10 | NUR ---
PT IS GOING HOME WITH DAUGHTER AND WILL FOLLOW UP WITH HIS PRIMARY DOCTOR IN 2 TO 3 DAYS. FAMILY WERE ADVISED THAT PT IS ABLE TO TRAVEL AND WILL BE GOING TO SEE HIS SONS FROM [place]. INSTRUCTIONS WERE GIVEN TO DAUGHTER.
--- NOTE | 2024-12-31 18:24 | DS ---
[facility] DISCHARGE SUMMARY Date Patient Seen: Dec 31, 2024 Time of Visit: 18:12 Supervising Physician: Hernan Lopez MD Primary Care Physician: Dr. Penelope De Los Santos Outpatient Specialists: Patient saw Unknown neurosurgeon two years ago Inpatient Consults: Dr. 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 Diffuse cerebral atrophy with chronic microangiopathic ischemic changes, per CT on 12/26/2024 Postsurgical changes in the frontal calvarium with a bony defect and a bone flap in place, per CT on 12/26/2024 Grade 2 Diastolic heart failure with the EF of 55-60% POA on 2D echo 12/27/24 NSTEMI type II in the presence of sepsis, improving Elevated D-dimer, POA negative for PE and DVT Pulmonary nodules,POA Hepatic cyst Cholelithiasis 0.8 cm fat density lesion in the left renal upper pole cortex, likely an angiomyolipoma Acute kidney injury, GFR 73 (no other GFR to compare) Anemia chronic disease Electrolyte derangement (Hypokalemia, hypomagnesemia, hypochloremia) Diabetes mellitus with hyperglycemia Hypoalbuminemia Chronic problem list: DM type 2, HTN, hypothyroidism HOSPITAL COURSE: HPI This is a 84-year-old male with a past medical history of 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 Patient presented to the emergency department after developing sudden intermittent nausea. Per family he has recently at baseline there was concern for progression of his known brain tumor. On arrival patient denied any headache fever chills rhinorrhea sore throat or chest pain. Patient denied any shortness of breaths only occasional nausea. CT of the head of 12/26/24 revealed an isodense lesion in the right cerebellopontine angle cistern causing mass effect on the thong and right cerebellar hemisphere with effacement of the fourth ventricle. Findings also included extensive gliosis, encephalomalacia in bilateral frontal lobes and right cerebellar hemisphere, diffuse cerebral atrophy with chronic microangiopathic ischemic changes, and post-surgical changes in the frontal calvarium with bony defect and bone flap. Neurosurgery (Dr. 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 Surgical options such as MANDREL PRESS HAND shunt would require transfer to [facility] Neuro-ICU. Family and patient declined aggressive surgical intervention, opting for conservative management. On admission Patient met criteria for sepsis secondary to UTI. Urine culture grew Enterococcus faecalis, sensitive to ampicillin. Initially treated with IV vancomycin, on DC transitioned to oral amoxicillin 500 mg PO q8h x 5 days at discharge. Pt also with minimal elevation on trop on admission in the presence of sepsis and resolving.Patient received IV dexamethasone during admission for cerebral edema. Transitioned to oral dexamethasone prior to discharge. Mild hyperglycemia noted while on steroids, managed conservatively. Family expressed preference for comfort-focused, non-aggressive measures. They declined neurosurgical intervention and are considering hospice referral through the primary care provider. Discharge planned home with close outpatient follow-up. Condition at Discharge Patient currently asymptomatic. Denies headache, nausea, vomiting, or new neurologic deficits. Ambulatory with assistance at baseline. Stable vital signs. Discharge Instructions Monitor for signs of increased intracranial pressure: severe headache, persistent vomiting, vision changes, confusion, weakness, or altered level of consciousness. Return to ED immediately if above symptoms occur. Complete full course of prescribed antibiotics. Follow up with primary care physician within 1 week for further coordination of hospice referral. Continue supportive care at home per Pt and family wishes. 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 This is an 84-year-old male patient decided to have surgery, either the options are to put a MANDREL PRESS HAND shunt and try to divert to the CSF out of two decompressive ventricles and see if the patient gets some improvement or going ahead and do occipital craniectomy and resection of the mass with probably possible ventriculostomy. The family, to my understanding, apparently had decided not to do any aggressive measurements on the patient, and at this moment, he is more symptomatic and would like to see if they change their mind and they want to do something about this. Obviously, this will be a complicated surgery that cannot be performed in this institution. We do not have proper microscope, neither navigation system, neither micro instruments to perform the surgery. More likely, if the family decides to do surgery, the patient is going to have to be transferred to the next hospital available in this case [facility]. PROCEDURES: as mentioned above Pt hemodynamically stable and afebrile at time of discharge. PCP notified of patients admission, hospital course and discharge. New Medications: Amoxicillin (Amoxicillin) 500 Mg Capsule 1 CAP PO TID for 10 Days, #30 CAP 0 Refills Dexamethasone (Dexamethasone) 4 Mg Tablet 1 TAB PO BID for 2 Days, #14 TAB 0 Refills Take 2 tablets 3 times a day for 2 days, then 1 tablet 3 times a day for 2 days, then 1 tablet twice daily for 2 days, then 1 Continued Medications: Aspirin (Adult Low Dose Aspirin EC) 81 Mg Tablet.dr 81 MG PO DAILY, TAB Atorvastatin Calcium (Atorvastatin Calcium) 20 Mg Tablet 20 MG PO DAILY, TAB Levothyroxine Sodium (Levothyroxine) 50 Mcg Capsule 50 MCG PO ACBKFST, CAP Linagliptin (Tradjenta) 5 Mg Tablet 5 MG PO DAILY, TAB Lisinopril (Lisinopril) 20 Mg Tablet 20 MG PO DAILY, TAB Metformin HCl (Metformin HCl) 500 Mg Tablet 500 MG PO BIDAC, TAB PHYSICAL EXAM: GENERAL: Alert, weak, awake oriented x 2-3 HEENT: EOMI, Sclera non icteric, moist mucosa NECK: Supple, no JVD, trachea midline LUNGS: Clear breath sounds bilaterally. No wheezes HEART: Regular rate and rhythm. Normal S1 and S2, without murmurs ABD: Abdomen soft, nontender. Bowel sounds present EXT: No clubbing cyanosis or edema NEURO: Alert and oriented to person, place, and some situation, follows commands FOLLOW-UP: Follow-up with PCP in 2-3 days Follow up with Neurosurgery Dr Alvarez in 1-2weeks. RECOMMENDATIONS: See Discharge Instructions This case was seen and discussed with my supervising physician. More than 30 minutes spent on discharge process, including evaluation of the patient, discussion with nursing staff, medication reconciliation and follow-up appoi ntments ATTESTATION BY PHYSICIAN I have evaluated the patient chart, medical records, and spoke with appropriate staff. I reviewed the documentation, medical decision making, and treatment plan as noted by the mid-level provider above. I agree with the findings and plan of care. Hernan Lopez MD, [facility] Dec 31, 2024 18:24
== END 2024-12-31 18:35 | disposition home or self-care (01) | DRG 871 ==
LOC: EDH 18:23 → EDHIP 23:34 → 2AH 12-27 03:05
PROVIDERS: ADMIT Internal Medicine Pulmonary Disease; ATTEND Internal Medicine Pulmonary Disease
DX: A41.9 Sepsis, unspecified organism (principal); G93.6 Cerebral edema; J18.9 Pneumonia, unspecified organism; I21.A1 Myocardial infarction type 2; N17.9 Acute kidney failure, unspecified; N30.00 Acute cystitis without hematuria; G91.9 Hydrocephalus, unspecified; I50.30 Unspecified diastolic (congestive) heart failure; G93.89 Other specified disorders of brain; D63.8 Anemia in other chronic diseases classified elsewhere; E03.9 Hypothyroidism, unspecified; E11.65 Type 2 diabetes mellitus with hyperglycemia; E87.6 Hypokalemia; E87.8 Other disorders of electrolyte and fluid balance, not elsewhere classified; E88.09 Other disorders of plasma-protein metabolism, not elsewhere classified; K76.89 Other specified diseases of liver; K80.20 Calculus of gallbladder without cholecystitis without obstruction; E86.0 Dehydration; B95.2 Enterococcus as the cause of diseases classified elsewhere; E83.42 Hypomagnesemia; K59.00 Constipation, unspecified; I11.0 Hypertensive heart disease with heart failure; I25.2 Old myocardial infarction; Z79.82 Long term (current) use of aspirin; Z79.84 Long term (current) use of oral hypoglycemic drugs; Z79.899 Other long term (current) drug therapy; Z98.2 Presence of cerebrospinal fluid drainage device
CPT/HCPCS: 36415; 70450; 70553; 71045; 71270; 80048; 80053; 80202; 81001; 82948; 83036; 83735; 84100; 84145; 84443; 84484; 85025; 85027; 85378; 85610; 85730; 87086; 87186; 87635; 87804; 87880; 92610; 93005; 93306; 93356; 93970; 99285; G0378; J0696; J1100; J1644; J1815; J3475; J3490; Q9967; J3370